=== PATIENT | male | born 1960 | race Caucasian/White ===

== ENCOUNTER 2023-02-20 12:55 | Emergency (ER) | payer OTHER, BC ==
[~2023-02-20] VITALS: Ht 182.9 cm; Wt 76.5 kg
[~2023-02-20 12:55] MED LIST: HYDROCHLOROTHIA25 MG PO; NORCO 5-325 TA1 EACH PO; OMEPRAZOLE20 MG PO
[2023-02-20 15:30] LABS: BASOPHILS 0.4 % (0-2); HEMATOCRIT 39.4 % (35.0-50.0); HEMOGLOBIN 13.7 g/dL (12.0-18.0); LYMPHOCYTES 17.1 % (24-44); MCH 32.5 (27-36); MCHC 34.7 g/dl (30-36); MCV 93.6 fl (81-99); NEUTROPHILS 71.5 % (39-80); RBC 4.21 M/ul (4.3-5.7); RDW 16.5 (10.5-15.0)
[2023-02-20 15:47] LABS: ALBUMIN 3.9 g/dL (3.4-5.0); ALBUMIN/GLOBULIN RATIO 1.22 (1.1-2.4); ANION GAP 21.9 (7-21); BILIRUBIN, TOTAL 2.6 ng/dL (0.2-1.0); POTASSIUM 3.9 mmol/L (3.5-5.1); PROTEIN, TOTAL 7.1 g/dL (6.4-8.2)
[2023-02-20 16:04] LABS: BUN/CREATININE RATIO 22.36 (6.0-28.6); CALCIUM 9.5 mg/dL (8.5-10.1); CREATININE, SERUM 0.76 mg/dL (0.70-1.30)
[2023-02-20 17:20] VITALS: BP 131/85
== END 2023-02-20 17:20 | disposition home or self-care (01) ==
LOC: ED 12:55
PROVIDERS: Emergency Medicine
DX: R53.1 Weakness (principal); I10 Essential (primary) hypertension
CPT/HCPCS: 36415; 80053; 83690; 85025; 85060; 99284

== ENCOUNTER 2023-03-05 14:54 | Inpatient (IN) | payer OTHER, BC ==
[~2023-03-05] VITALS: Ht 182.9 cm; Wt 64.2 kg
--- OUTSIDE RECORDS SUMMARY | 2023-03-05 15:02 | XMS ---
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 - 2 Visits in 30 Days CARE PROVIDERS There are no care providers on record at this time. Dustin has no Care Guidelines for this patient. Cinthya VISIT COUNT (12 MO.) 2 [facility] H. TOTAL 2 NOTE: Visits indicate total known visits. ED/[facility] VISIT TRACKING (12 MO.) 03/05/2023 14:[address] [facility] TYPE: Emergency COMPLAINT: - WEAKNESS 02/20/2023 12:[address] [facility] TYPE: Emergency COMPLAINT: - WEAKNESS, LETHARGIC DIAGNOSES: - Essential (primary) hypertension - Weakness INPATIENT VISIT TRACKING (12 MO.) No inpatient visits to display in this time frame [email or web address]
[2023-03-05 15:57] LABS: EOSINOPHILS 0.6 % (0-6); HEMATOCRIT 44.9 % (35.0-50.0); HEMOGLOBIN 15.2 g/dL (12.0-18.0); LYMPHOCYTES 7.2 % (24-44); MCH 33.1 (27-36); MCHC 33.9 g/dl (30-36); MCV 97.7 fl (81-99); MONOCYTES 8.6 % (0-12); NEUTROPHILS 83.6 % (39-80); PLATELET COUNT 290 K/uL (140-440); RBC 4.59 M/ul (4.3-5.7); RDW 19.1 (10.5-15.0)
[2023-03-05 16:11] LABS: ALBUMIN 4.3 g/dL (3.4-5.0); ALBUMIN/GLOBULIN RATIO 1.13 (1.1-2.4); ANION GAP 24.5 (7-21); BILIRUBIN, TOTAL 2.5 ng/dL (0.2-1.0); BUN/CREATININE RATIO 39.82 (6.0-28.6); CALCIUM 10.1 mg/dL (8.5-10.1); CREATININE, SERUM 2.26 mg/dL (0.70-1.30); MAGNESIUM 3.3 mg/dL (1.8-2.4); POTASSIUM 4.5 mmol/L (3.5-5.1); PROTEIN, TOTAL 8.1 g/dL (6.4-8.2)
[2023-03-05 17:01] LABS: INFLUENZA B NAA NEGATIVE (NEGATIVE); RESPIRATORY SYNCYTIAL VIR NAA NEGATIVE (NEGATIVE)
--- NOTE | 2023-03-05 18:35 | NUR ---
THIS RN DOWN TO ED TO TRANSFER PT TO MED/SURG. BEDSIDE REPORT RECEIVED FROM SHANNAN Shepard RN. PT TO MED/SURG ROOM VIA STRETCHER. QUICK ADMIT COMPLETE. VITALS AND BED WEIGHT COMPLETE. VASCULAR ACCESS COMPLETE. WALLET, KEYS AND POCKET KNIFE PLACED IN LOCK BOX. CLOTHES IN BELONGING BAG PLACED IN CLOSET. PT IN BED IN ROOM. PT REQUESTING WATER. WATER PROVIDED. CALL LIGHT PROVIDED. PT EDUCATED FREIGHT TRUCKER LIGHT USE. PT VERBALIZES UNDERSTANDING. PT DENIES ANY OTHER NEEDS AT THIS TIME. CALL LIGHT IN REACH.
[2023-03-05 18:48] VITALS: BP 147/94
--- NOTE | 2023-03-05 19:45 | NUR ---
REPORT RECEIVED FROM DAY SHIFT RN. PT SITTING UP IN BED WATCHING TV. AWAKE AND ALERT. NO SIGNS OF ACUTE DISTRESS. CALL LIGHT WITHIN REACH. NO NEEDS EXPRESSED AT THIS TIME. IV IN PLACE AND INTACT. WILL CONTINUE TO MONITOR.
[2023-03-05 20:25] VITALS: BP 136/95
--- NOTE | 2023-03-05 20:46 | NUR ---
SISTER HÉCTOR NOYOLA CALLED AND ASKED FOR PT UPDATE, PT GAVE VERBAL PERMISSION TO ALLOW STAFF TO TALK TO SISTER HÉCTOR VIA PHONE. UPDATE PROVIDED AND QUESTIONS ANSWERED, SISTER TRANSFERRED TO PT ROOM AND TALKING TO PT ON PHONE AT THIS TIME. HÉCTOR'S # [phone]. SISTER WISHES TO HAVE PRIMARY RN CALL BACK SISTER WHEN ABLE, PRIMARY RN MARY MADE AWARE.
--- NOTE | 2023-03-05 21:20 | NUR ---
ON PHONE WITH DR PEREZ, TELEPHONE ORDERS TO MAKE pt NPO AT MIDNIGHT FOR TENATIVE SCOPE TOMORROW. ALSO MADE AWARE THAT LR BOLUS IS INFUSING AND LAB WILL DRAW ORDERED BMP FOLLOWING COMPLETION OF BOLUS, OKAY'ED AND WILL BE LOOKING FOR LAB RESULTS. PRIMARY RN MARY NOW ON PHONE DEMETRIUS LAFLEUR REGARDING pt CARE.
[2023-03-05 22:54] LABS: BUN/CREATININE RATIO 44.1 (6.0-28.6); CALCIUM 9.3 mg/dL (8.5-10.1); CREATININE, SERUM 1.95 mg/dL (0.70-1.30)
--- NOTE | 2023-03-05 23:55 | NUR ---
PATIENT BLADDER SCANNED PER DR. THOMAS ORDERS. BLADDER SCAN SHOWS 367CC IN BLADDER. PT THEN VOIDED 150ML OF CHECO URINE INTO URINAL. DR THOMAS NOTIFIED OF PT VOID AMOUNT. 1000ML BOLUS ORDERED TO RUN OVER 2 HOURS. WILL CONTINUE TO MONITOR.
--- NOTE | 2023-03-06 01:30 | NUR ---
PT RESTING COMFORTABLY IN BED. BREATHING EVEN AND UNLABORED. NO SIGNS OF ACUTE DISTRESS. IV FLUIDS INFUSING. IV INTACT AND PATENT. NO NEEDS EXPRESSED AT THIS TIME. WILL CONTINUE TO MONITOR.
[2023-03-06 02:07] VITALS: BP 138/83
[2023-03-06 02:23] LABS: BILIRUBIN, URINE POSITIVE (negative); BLOOD/HGB, URINE NEGATIVE (Negative); KETONE, URINE TRACE (Negative); LEUK ESTERASE, URINE NEGATIVE (negative); NITRITE, URINE NEGATIVE (negative)
--- NOTE | 2023-03-06 03:55 | NUR ---
PT RESTING COMFORTABLY IN BED, BREATHING EVEN AND UNLABORED. IV FLUIDS INFUSING. NO SIGNS OF ACUTE DISTRESS. CALL LIGHT IN REACH. SAFETY PRECAUTIONS IN PLACE. WILL CONTINUE TO MONITOR.
--- NOTE | 2023-03-06 06:06 | NUR ---
BLOOD LABS DRAWN FROM IV, TOLERATED WELL. IV FLUSHED WELL, IV FLUIDS INFUSING PER ORDER.
[2023-03-06 06:13] LABS: BASOPHILS 0.3 % (0-2); EOSINOPHILS 0.4 % (0-6); HEMATOCRIT 35.6 % (35.0-50.0); HEMOGLOBIN 11.3 g/dL (12.0-18.0); LYMPHOCYTES 13.7 % (24-44); MCH 32.7 (27-36); MCHC 31.7 g/dl (30-36); MCV 103.5 fl (81-99); MONOCYTES 9.5 % (0-12); NEUTROPHILS 76.1 % (39-80); PLATELET COUNT 178 K/uL (140-440); RBC 3.45 M/ul (4.3-5.7); RDW 22.2 (10.5-15.0)
[2023-03-06 06:16] VITALS: BP 135/78
--- NOTE | 2023-03-06 07:20 | NUR ---
bedside report from enrrique rn, pt resp rate reg, eyes closed with call light in reach. lr on strait tubing provided to bedside by this rn in anticipation of egd with dr rueda today. pt npo, iv fusing. lab called and needs a yellow top blood draw as an add on from dr. rueda - for a send out lab - this rn discussed with wheel shop supervisor and dr. dubose and agree as pt is hard stick to wait until his scope today and draw blood when in procedure for his comfort. this rn will notify staff to draw yellow top during the procedure.
--- NOTE | 2023-03-06 07:43 | NUR ---
dayshiphong cabrera aware of new order for yellow top lab-send out.
--- NOTE | 2023-03-06 08:00 | NUR ---
pt brother cheyanne here to check in and let us know he lives in [place] and brother pt mitch is single, no kids, so cheyanne is his oldest, closest brother and is willing to help out with care and transport etc. phone [phone]. rn notified roque alexander mnt.
[2023-03-06 08:40] LABS: ALBUMIN 2.9 g/dL (3.4-5.0); ALBUMIN/GLOBULIN RATIO 1.04 (1.1-2.4); ANION GAP 14.7 (7-21); BILIRUBIN, TOTAL 1.8 ng/dL (0.2-1.0); BUN/CREATININE RATIO 44.76 (6.0-28.6); CALCIUM 8.9 mg/dL (8.5-10.1); CREATININE, SERUM 1.72 mg/dL (0.70-1.30); MAGNESIUM 2.8 mg/dL (1.8-2.4); PHOSPHORUS, INORGANIC 3.8 mg/dL (2.5-4.9); POTASSIUM 3.7 mmol/L (3.5-5.1); PROTEIN, TOTAL 5.7 g/dL (6.4-8.2)
--- NOTE | 2023-03-06 08:58 | NUR ---
ENTERED THE PATIENT'S ROOM TO DO A HOUSING CASE MANAGERTAPPER OPERATOR AND PATIENT IS SLEEPING. THE PLAN IS THE PATIENT WILL GO TO THE OR TODAY FOR AN GASTROESOPHEAL BIOPSY FOR POSSIBLE CANCER. WILL CHECK BACK LATER TO SEE IF PATIENT IS AWAKE AND ABLE TO DISCUSS THE DISCHARGE PLAN.
--- NOTE | 2023-03-06 10:03 | NUR ---
PATIENT IS AWAKE AND DISCUSSED THE DC PLAN WITH TRAINING INSTRUCTOR. PATIENT LIVES ALONE IN AN APARTMENT. PATIENT HAS A BROTHER JUAN PABLO AT [phone] WHO IS WILLING TO HELP NEEDED. 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 PATIENT DOES NOT USE DME.PATIENT CAME INTO HOSPITAL BECAUSE OF DIFFICULTY SWALLOWING. PATIENT PLANS TO GO HOME TO HIS APRTMENT WHEN MEDICALLY STABLE POST-OP BIOPSY.
[2023-03-06 10:08] VITALS: BP 110/52
--- NOTE | 2023-03-06 11:07 | NUR ---
RAFAELA Juan ASKED FOR SPIRITUAL CARE CONSULT. ATTEMPTED TO VISIT. PT WAS SLEEPING. DID NOT DISTURB. PRAYED SILENTLY FOR COMFORT AND RELIEF FROM DISTRESS.
--- NOTE | 2023-03-06 11:13 | NUR ---
in room with dr rueda and pt to discuss plan of care, pt na+ low and being corrected at this time with d5 @ 125 - discuss plan for scope to be tomorrow.
--- NOTE | 2023-03-06 13:30 | NUR ---
lengthy discussion with brother minoo and then introduced to Opal davila and dr dubose. in room now with dr and pt and brother. pt tollerating clear liquid diet. brother going in to talk to pt about options of care and staying with family.
--- NOTE | 2023-03-06 13:55 | NUR ---
PATIENT'S BIOPSY HAS BEEN CHANGED AND WILL BE TOMORROW SINCE PATIENT'S NA IS ELEVATED TO 150. BROTHER JUAN PABLO IS HERE AND WANTED TO DISCUSS THE FUTURE PLAN SINCE THE PATIENT HAS METS VIA CT. JUAN PABLO IS WILLING TO TAKE THE PATIENT HOME TO [facility] IF THE PATIENT AGREES. PATIENT ALSO HAS A SISTER IN [place] THAT MAY HELP IF NEEDED. THE FAMILY WILL TALK TO THE PATIENT TO COME UP WITH THE BEST PLAN FOR THE PATIENT. JUAN PABLO ENCOUARED TO CALL CASE MANGEMENT FOR ALL ISSUE AND CONCERNS.
[2023-03-06 14:43] VITALS: BP 123/83
--- NOTE | 2023-03-06 15:05 | NUR ---
UR NOTE MCG DEHYDRATION (ISC) INPATIENT 03/05/23 MET CLINICAL INDICATIONS FOR INPATIENT CARE 03/06/23 VARIANCE GL DAY 2
[2023-03-06 16:05] LABS: ANION GAP 17.8 (7-21); BUN/CREATININE RATIO 42.33 (6.0-28.6); CALCIUM 8.9 mg/dL (8.5-10.1); CREATININE, SERUM 1.63 mg/dL (0.70-1.30); POTASSIUM 3.8 mmol/L (3.5-5.1)
--- NOTE | 2023-03-06 17:29 | NUR ---
MED REC COMPLETE
--- NOTE | 2023-03-06 17:32 | NUR ---
call to dr dubose to notify that pt is not able to swallow fluids well and keep down, pt is spitting up saliva and juice after he drinks it. said fluids for comfort and continue the d5w. pt denies pain. call light in reach.
--- NOTE | 2023-03-06 18:52 | NUR ---
iv bag refreshed see emar, pt resting on left side watching tv, denies need, call light in reach. sign on door and order in for npo at wa for scope in am. strait tubing to bed.
[2023-03-06 20:33] LABS: ANION GAP 12.4 (7-21); BUN/CREATININE RATIO 37.8 (6.0-28.6); CALCIUM 8.7 mg/dL (8.5-10.1); CREATININE, SERUM 1.64 mg/dL (0.70-1.30); POTASSIUM 3.4 mmol/L (3.5-5.1)
[2023-03-06 20:55] VITALS: BP 143/74
--- NOTE | 2023-03-06 22:28 | EKG ---
[facility] [address] [place] [address] Signed Normal sinus rhythm Left anterior fascicular block Anterior infarct (cited on or before 19-DEC-2015) Abnormal ECG When compared with ECG of 19-DEC-2015 13:22, Left anterior fascicular block is now present T wave inversion no longer evident in Inferior leads Confirmed by Tyler Perez MD () on 03/06/2023 10:28:24 PM Electronically Signed By: TYLER PEREZ MD 03/06/232227 PATIENT NAME: LISBETH EL Electrocardiogram DATE OF : 62 PHYSICIAN: TYLER PEREZ MD REPORT #: [id number] REPORT IS CONFIDENTIAL AND NOT TO BE RELEASED WITHOUT AUTHORIZATION
--- NOTE | 2023-03-06 22:36 | NUR ---
PT RESTING COMFORTABLY IN BED WITH EYES CLOSED. BREATHING EVEN AND UNLABORED. IV FLUIDS INFUSING. IV PATENT AND INTACT. CALL LIGHT WITHIN REACH. SAFETY PRECAUTIONS IN PLACE. WILL CONTINUE TO MONITOR.
--- NOTE | 2023-03-07 00:13 | NUR ---
PT RESTING COMFORTABLY IN BED WITH EYES CLOSED. BREATHING EVEN AND UNLABORED. IV FLUIDS INFUSING. IV INTACT AND PATENT. NO NEEDS EXPRESSED AT THIS TIME. CALL LIGHT WITHIN REACH. SAFETY PRECAUTIONS IN PLACE.
[2023-03-07 01:03] LABS: BUN/CREATININE RATIO 43.51 (6.0-28.6); CALCIUM 7.3 mg/dL (8.5-10.1); CARBON DIOXIDE 20 mmol/L (21-32); CREATININE, SERUM 1.08 mg/dL (0.70-1.30); GLOMERULAR FILTRATION RATE,EST 78 mL/min (>60); UREA NITROGEN 47 mg/dL (7-18)
--- NOTE | 2023-03-07 01:30 | NUR ---
ATTEMPTED USIV PLACEMENT X2 WITHOUT SUCCESS. ATTEMPTED LAB DRAW X2 WITHOUT SUCCESS. PRIMARY RN NOTIFIED.
--- NOTE | 2023-03-07 04:00 | NUR ---
PT RESTING COMFORTABLY IN BED WITH EYES CLOSED. BREATHING EVEN AND UNLABORED. IV FLUIDS INFUSING. IV PATENT AND WITH NO SIGNS OF INFILTRATION. CALL LIGHT IN REACH. SAFETY PRECAUTIONS IN PLACE.
[2023-03-07 05:46] LABS: BASOPHILS 0.2 % (0-2); EOSINOPHILS 1.3 % (0-6); HEMATOCRIT 32.1 % (35.0-50.0); HEMOGLOBIN 10.9 g/dL (12.0-18.0); LYMPHOCYTES 17.2 % (24-44); MCH 33.8 (27-36); MCHC 33.8 g/dl (30-36); MCV 99.7 fl (81-99); MONOCYTES 10.4 % (0-12); NEUTROPHILS 70.9 % (39-80); PLATELET COUNT 143 K/uL (140-440); RBC 3.22 M/ul (4.3-5.7); RDW 19.8 (10.5-15.0)
[2023-03-07 05:47] VITALS: BP 138/81
[2023-03-07 06:00] LABS: ALBUMIN 3.1 g/dL (3.4-5.0); ALBUMIN/GLOBULIN RATIO 1.11 (1.1-2.4); ANION GAP 11.9 (7-21); BILIRUBIN, TOTAL 1.8 ng/dL (0.2-1.0); BUN/CREATININE RATIO 32.37 (6.0-28.6); CALCIUM 8.5 mg/dL (8.5-10.1); CREATININE, SERUM 1.39 mg/dL (0.70-1.30); MAGNESIUM 2.4 mg/dL (1.8-2.4); PHOSPHORUS, INORGANIC 2.7 mg/dL (2.5-4.9); POTASSIUM 3.9 mmol/L (3.5-5.1); PROTEIN, TOTAL 5.9 g/dL (6.4-8.2)
--- NOTE | 2023-03-07 06:21 | NUR ---
PT REQUESTED TO GO TO BATHROOM. PT WALKED TO RESTROOM STEADY WITH STANDBY ASSIST. PT BACK IN BED. IV FLUIDS INFUSING. IV PATENT AND FLUSHING. NO NEEDS EXPRESSED AT THIS TIME. CALL LIGHT WITHIN REACH. SAFETY PRECAUTIONS IN PLACE.
--- NOTE | 2023-03-07 07:05 | NUR ---
REPORT RECEIVED FROM DIE ATTACHING MACHINE TENDER RN. PATIENT RESTING WITH EYES CLOSED. RESPIRATIONS ARE EVEN AND UNLABORED. CALL LIGHT AND PERSONAL BELONGINGS ARE WITHIN REACH.
--- NOTE | 2023-03-07 09:30 | NUR ---
PATIENT FULL ASSESSMENT COMPLETE. ASSESSMENT UNREMARKABLE AND DOCUMENTED IN THE CHART. PATIENT SITTING IN THE RECLINER WITH THEIR BROTHER AT BEDSIDE. IV SITE IS CLEAN, DRY, AND INTACT. SOME PAIN UPON FLUSHING THE 10 ML NORMAL SALINE. WITH PROTONIX AND THE SECOND 10 ML NORMAL SALINE, PATIENT TOLERATED WELL WITH NO COMPLAINTS OF PAIN. LUNG SOUNDS CLEAR. CARDIAC WITH NORMAL S1 AND S2 AND CAPILLARY REFILL LESS THAN 3 SECONDS IN THE UPPER AND LOWER EXTREMITIES. RADIAL AND PEDAL PULSES STRONG. IV 5% DEXTROSE NEW BAG HUNG AND RUNNING AT 125 ML/HR. PATIENT STATED NO PAIN AND NO FURTHER NEEDS AT THIS TIME. CALL LIGHT AND PERSONAL BELONGINGS ARE WITHIN REACH.
[2023-03-07 09:37] VITALS: BP 131/72
--- NOTE | 2023-03-07 09:39 | NUR ---
PATIENT STATED HE DID NOT HAVE TO USE THE BATHROOM YET. PT HAS NOT VOIDED YET ON THIS BUSHING PRESS OPERATOR'S SHIFT. PT IN CHAIR CALL LIGHT WITHIN REACH.
--- NOTE | 2023-03-07 10:41 | NUR ---
PT PROVIDED WITH CLEAR ENSURE AND WATER. ENCOURAGED TO TAKE SMALL SIPS AND TO ALLOW TIME BETWEEN SIPS. DR. CHAMBERLAIN IN ROOM, DISCUSSED DELAYING EGD UNTIL TOMORROW DUE TO NA 150, DISCUSSED HALFWAY PLAN OF CARE DISCHARGE VS [facility].
--- NOTE | 2023-03-07 13:23 | NUR ---
PATIENT SITTING UPRIGHT IN THE RECLINER. PATIENT LUNG ASSESSMENT WITH CLEAR LUNG SOUNDS IN ALL LUNG JAMA. PATIENT ON ROOM AIR. PATIENT STATING NO PAIN. IV SITE IN RIGHT HAND AND LEFT UPPER ARM ARE CLEAN, DRY, AND INTACT. PATIENT ASKED FOR TV TURNED ON. PATIENT STATED NO FURTHER NEEDS AT THIS TIME. CALL LIGHT AND PERSONAL BELONGINGS ARE WITHIN REACH.
[2023-03-07 13:50] VITALS: BP 118/75
[2023-03-07 17:24] VITALS: BP 141/87
--- NOTE | 2023-03-07 17:28 | NUR ---
PATIENT REFUSED CLEAR LIQUIDS X3. CALL LIGHT WITHIN REACH.
--- NOTE | 2023-03-07 18:56 | NUR ---
PT DENIES NEEDS AT THIS TIME, RESTING IN BED WATCHING TV.
--- NOTE | 2023-03-07 19:54 | NUR ---
REPORT RECIEVED FROM DAY SHIFT RN. PATIENT RESTING IN BED. REPIRATIONS EVEN AND UNLABORED. CALL LIGHT IN REACH. WHITE BOARD UPDATED.
[2023-03-07 20:19] VITALS: BP 124/76
[2023-03-07 20:25] LABS: ANION GAP 11.4 (7-21); BUN/CREATININE RATIO 23.52 (6.0-28.6); CALCIUM 8.1 mg/dL (8.5-10.1); CREATININE, SERUM 1.19 mg/dL (0.70-1.30); POTASSIUM 3.4 mmol/L (3.5-5.1)
--- NOTE | 2023-03-07 20:30 | NUR ---
PATIENT RESTING IN BED. AWAKENS EASILY. BLOOD DRAWN OUT OF LEFT UPPER ARM IV AND SENT TO LAB. VS OBTAINED AND DOCUMENTED. ASSESSMENT COMPLETE. PATIENT HAS STRONG PULSES BILATERALLY. PATIENT DENIES ANY PAIN OR NAUSEA. PATIENT HAS NO FURHTER NEEDS. CALL LIGHT IN REACH. FLUIDS INFUSING PER ORDER.
--- NOTE | 2023-03-07 22:18 | NUR ---
ROUNDING ON PATIENT. PATIENT RESTING ON BACK IN BED. RESPIRATIONS EVEN AND UNLABORED. CALL LIGHT IN REACH.
[2023-03-08] VITALS (7 sets, daily range): BP systolic 98–129; BP diastolic 63–73
--- NOTE | 2023-03-08 | NUR ---
NEW ORDERS RECIEVED. MEDICATIONS ADMINISTERED, SEE MAR. PATIENT EDUCATED ON NEW MEDICATION. PATIENT VERBALIZES UNDERSTANGING. CALL LIGHT IN REACH.
--- NOTE | 2023-03-08 01:57 | NUR ---
PATIENT RESTING IN BED ON LEFT SIDE. RESPIRATIONS EVEN AND UNLABORED. MEDICATIONS INFUSING PER ORDER. CALL LIGHT IN REACH.
--- NOTE | 2023-03-08 03:03 | NUR ---
PATIENT RESTING IN BED ON BACK WITH EYES CLOSED. RESPIRATIONS EVEN AND UNLABORED. MEDICATION INFUSING PER ORDER. CALL LIGHT IN REACH.
--- NOTE | 2023-03-08 04:21 | NUR ---
PATIENT IS RESTING IN BED WITH EYES CLOSED, RR 15. CALL LIGHT IN REACH. IV INFUSING PER ORDER.
[2023-03-08 05:36] LABS: BASOPHILS 0.2 % (0-2); EOSINOPHILS 1.8 % (0-6); HEMATOCRIT 28.8 % (35.0-50.0); HEMOGLOBIN 9.8 g/dL (12.0-18.0); LYMPHOCYTES 11.3 % (24-44); MCH 33.8 (27-36); MCHC 34.1 g/dl (30-36); MCV 99.1 fl (81-99); MONOCYTES 10.9 % (0-12); NEUTROPHILS 75.8 % (39-80); PLATELET COUNT 125 K/uL (140-440); RBC 2.91 M/ul (4.3-5.7); RDW 18.8 (10.5-15.0)
--- NOTE | 2023-03-08 05:39 | NUR ---
MORNING LABS DRAWN BY THIS RN. PATIENT UP TO BATHROOM TO VOID WITH 1 PERSON SBA. VS AND I&Os OBTAINED AND DOCUMENTED. ASSESSMENT COMPLETE. LUNG SOUNDS CLEAR BILAT. PATIENT STATES NO FURTHER NEEDS. CALL LIGHT IN REACH. PATIENT REPORTS NO PAIN AT THIS TIME. IV INFUSING PER ORDER.
[2023-03-08 05:57] LABS: ALBUMIN 2.8 g/dL (3.4-5.0); ALBUMIN/GLOBULIN RATIO 1.12 (1.1-2.4); ANION GAP 12.1 (7-21); BILIRUBIN, TOTAL 2.4 ng/dL (0.2-1.0); BUN/CREATININE RATIO 22.52 (6.0-28.6); CALCIUM 8.2 mg/dL (8.5-10.1); CREATININE, SERUM 1.11 mg/dL (0.70-1.30); MAGNESIUM 2.1 mg/dL (1.8-2.4); PHOSPHORUS, INORGANIC 2.6 mg/dL (2.5-4.9); POTASSIUM 4.1 mmol/L (3.5-5.1); PROTEIN, TOTAL 5.3 g/dL (6.4-8.2)
--- NOTE | 2023-03-08 07:00 | NUR ---
REPORT RECEIVED FROM GREASE PRESS HELPER RN ISMAEL. PATIENT LYING ON THE LEFT SIDE. RESPIRATIONS EVEN AND UNLABORED AND RESTING WITH EYES CLOSED. CALL LIGHT AND PERSONAL BELONGINGS ARE WITHIN REACH.
--- NOTE | 2023-03-08 09:35 | NUR ---
PATIENT MET WITH FIRST HELPER AND CONSENT SIGNED BY THE PATIENT. PATIENT PROTONIX ADMINISTERED PER THE EMAR. 10 ML NORMAL SALINE FLUSHES DONE BEFORE AND AFTER IN THE LEFT UPPER ARM. PATIENT AMBULATED TO THE BATHROOM WITH STAND BY ASSIST TO VOID. PATIENT FULL ASSESSMENT UNREMARKABLE. PATIENT AFFECT FLAT. SISTER STATED YESTERDAY THIS WAS HIS BASELINE. PATIENT PRE PROCEDURE CHECKLIST COMPLETE. OR NURSES TOOK DOWN TO OR. PATIENT BROTHER, SISTER IN LAW, AND NIECE ARE AT THE BEDSIDE. PATIENT STATED NO FURTHER NEEDS AT THIS TIME. CALL LIGHT AND PERSONAL BELONGINGS ARE WITHIN REACH.
--- NOTE | 2023-03-08 10:11 | NUR ---
03/08/23 1011 Chantelle Alvarez 1006: PT ARRIVES TO PACU ASLEEP. HE REQUIRES SUCTION UPON ARRIVAL. HE IS INSTRUCTED TO COUGH AND DEEP BREATH, HE IS ABLE TO FOLLOW COMMANDS APPROPRIATELY.
--- NOTE | 2023-03-08 10:40 | NUR ---
PATIERNT RETURNED BACK TO THE ROOM. VITAL SIGNS TAKEN AND ARE ALL WITHIN NORMAL. PATIENT FAMILY AT THE BEDSIDE. PATIENT STATED NO FURTHER NEEDS AT THIS TIME. CALL LIGHT AND PERSONAL BELONGINGS ARE WITHIN REACH.
--- NOTE | 2023-03-08 15:25 | NUR ---
PATIENT LAYING IN THE BED WITH FAMILY MEMBER AT BEDSIDE. NEW BAG OF D5LR STARTED. PATIENT AND FAMILY STATED NO FURTHER NEEDS AT THIS TIME. CALL LIGHT AND PERSONAL BELONGINGS ARE WITHIN REACH.
--- NOTE | 2023-03-08 16:10 | NUR ---
PATIENT GOT UP TO THE BATHROOM AND BRUSHED HIS TEETH. PATIENT IV PUMP PLUGGED BACK IN. PATIENT FAMILY IS AT THE BEDSIDE. PATIENT STATED NO FURTHER NEEDS AT THIS TIME.
--- NOTE | 2023-03-08 18:25 | NUR ---
PATIENT ASKED ABOUT HAVING MORE ZOFRAN BEFORE GOING TO BED. PATIENT EDUCATED HOW HE CAN HAVE ZOFRAN EVERY SIX HOURS NEEDED. PATIENT ALSO EDUCATED THAT HE CAN HAVE COMPAZINE FOR NAUSEA IF NEEDED BEFORE 2200. PATIENT EXPRESSED UNDERSTANDING. TWO OF THE PATIENTS SIBLINGS ARE AT THE BEDSIDE. PATIENT AND FAMILY STATED NO FURTHER NEEDS AT THIS TIME. CALL LIGHT AND PERSONAL BELONGINGS ARE WITHIN REACH.
--- NOTE | 2023-03-08 19:31 | NUR ---
REPORT RECIEVED FROM DAY SHIFT RN. PATIENT RESTING IN BED WATCHING TV. WHITE BOARD UPDATED. NO FURTHER NEEDS. CALL LIGHT IN REACH.
--- NOTE | 2023-03-08 19:55 | NUR ---
CALL LIGHT ANSWERED. SBA. PATIENT UP TO THE BATHROOM VOIDED 350ML DARK URINE. PATIENT IS BACK IN BED. NO OTHER NEEDS AT THIS TIME. CPOX BACK ON. CALL LIGHT AND SIDE TABLE WITHIN REACH.
--- NOTE | 2023-03-08 20:39 | NUR ---
PATIENT IN BED WATCHING TV. VS AND I&Os OBTAINED AND DOCUMENTED. PATIENT STATES HAVING NAUSEA. PATIENT STATES NO PAIN. PRN NAUSEA MEDICATION GIVEN, SEE MAR. IVs FLUSHED AND FLUIDS INFUSING PER ORDER. ASSESSMENT COMPELTE. LUNG SOUNDS WNL BILAT. STRONG PEDAL PULSES. TRASH EMPTIED AND ROOM CLEAN. PATIENT REPORTS NO FURTHER NEEDS. CALL LIGHT IN REACH.
--- NOTE | 2023-03-08 22:26 | NUR ---
PATIENT RESTING IN BED WITH EYES CLOSED. RESPIRATIONS EVEN AND UNLABORED. CALL LIGHT IN REACH. IV FLUIDS INFUSING PER ORDER.
--- NOTE | 2023-03-08 23:50 | NUR ---
PATIENT RESTING IN BED ON LEFT SIDE. RESPIRATIONS EVEN AND UNLABORED. CALL LIGHT IN REACH.
--- NOTE | 2023-03-09 02:36 | NUR ---
PATIENT IN BED RESTING ON BACK WITH EYES CLOSED. NEW BAG IV FLUID INFUSING, SEE MAR. RESPIRATIONS EVEN AND UNLABORED. 02 SAT 94% ON RA. CALL LIGHT IN REACH.
--- NOTE | 2023-03-09 03:34 | NUR ---
CALL LIGHT ANSWERED. PATIENT UP TO BATHROOM TO VOID WITH MINIMAL SBA. URINE VERY DARK IN COLOR. FOCUSED ASSESSMENT COMPLETE. PATIENT DENIED ANY N/V OR PAIN. LUNGS SOUNDS WNL BILAT. THIS RN ADJUSTED THE LENGTH OF PATIENTS BED FOR COMFORT. PATIENT HAS NO FURTHER NEEDS AT THIS TIME. CALL LIGHT IN REACH.
--- NOTE | 2023-03-09 03:38 | NUR ---
PATIENT RESTING IN BED ON BACK WITH EYES CLOSED. RESPIRATIONS EVEN AND UNLABORED. CALL LIGHT IN REACH.
--- NOTE | 2023-03-09 05:28 | NUR ---
PATIENT RESTING IN BED. VS AND I&Os OBTAINED AND RECORDED. ROOM CLEAN AND WHITE BOARD UPDATED. ICE CHIPS PROVIDED. PATIENT HAS NO FURTHER NEEDS. CALL LIGHT IN REACH.
[2023-03-09 06:40] VITALS: BP 100/52
--- NOTE | 2023-03-09 07:13 | OR ---
[facility] [address], [place] [address] Signed DATE OF OPERATION: 03/08/2023 SURGEON: Mark Chamberlain MD PREOPERATIVE DIAGNOSIS: Gastric/GE junction tumor. 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 PROCEDURE: EGD with CLOtest and biopsies of the pyloric bulb antrum, distal side of tumor and proximal side of tumor, distal esophagus and mid esophagus. ESTIMATED BLOOD LOSS: 10 mL. FINDINGS: Lisbeth indeed has a very friable tumor involving the entire lower esophageal sphincter area. 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 He said he is connected with the [employer], but is not exactly able to tell me why. He does have his primary care provider here in [place], [place]. His family tells me he has been a loner all his whole life. He has never been and he has no children. He currently works at the local [employer]. He has one brother who lives over in [place], [place] about 1 hour and 20 minutes away. He has a sister in [place], [place] and one sister in [place], [place]. At least six months ago, he started to mention symptoms to his primary care provider. He told the primary care provider he was intentionally losing weight. He was complaining of acid reflux. Prilosec was not helping and he went back to his Pepcid. He then increased the Pepcid to b.i.d. Over six months he has gone from about 230 pounds down to about 140 pounds. Some blood work came back with elevated liver function test. An ultrasound showed multiple lesions in the liver. The radiologist recommended MRI. The MRI was done about three weeks later. It shows a 5.8 x 4.5 cm in the fundus and GE junction of the stomach. Of course, there were multiple lesions throughout the liver and multiple pathologically enlarged lymph nodes in the upper abdomen. I have been asked to see him expeditiously in my office two days later. In the office, he was profoundly weak and dehydrated. My certified medical coder Electronically Signed By: MARK CHAMBERLAIN MD 03/09/23 0713 PATIENT NAME: LISBETH EL OPERATIVE REPORT DATE OF : 62 REPORT #: [id number] PHYSICIAN: MARK CHAMBERLAIN MD PCP: HUSSEIN ESTEVES MD REPORT IS CONFIDENTIAL AND NOT TO BE RELEASED WITHOUT AUTHORIZATION [address] [address] Signed I had to help him from the exam chair over to the wheelchair. We had taken him down to our local emergency room there connected to our medical office building. I spoke with the ER doctor and our hospitalist. He had received IV fluids and some blood work and admitted to the hospitalist service. Of course, he was in significant renal failure. He was also hypernatremic. He initially received saline. As his urine output picked up, they switched over to D5W. Finally today his sodium is down into the normal range. Of course, he is pancytopenic at this point. His albumin dropped to 2.8. His pre-albumin still pending. The CEA level is also still pending. We did not perform any additional radiographic studies at this time. He is able to swallow and control his saliva. But if we asked him to drink clear liquids to any significant degree, he generally coughs quite a bit of that back up. I think solid food is out of the question. I have now met with Lisbeth several days in a row along with his brother, José Miguel and his [id number]. I think they all understand the gravity of the situation at this time. Of course, I have been asked as a local general surgeon to help with upper endoscopy and biopsies of the tumor. I had reviewed with Lisbeth and his family the nature of an upper endoscopy. Lisbeth told me he had a colonoscopy over 10 years ago back at our old hospital. Consequently, he is somewhat familiar with this process. He knows there is risk including, but not limited to gas bloating, crampy abdominal pain, bleeding, perforation requiring surgery, and missed diagnosis. Also because of his current situation along with his weakness, we did have an anesthesia provider help with monitored anesthesia care and increased airway control. That actually proved to be a feliz decision. Lisbeth had expressed understanding and wished to proceed. DESCRIPTION OF PROCEDURE: Lisbeth was taken down to our endoscopy suite and placed in the supine semi-recumbent position. He was given monitored anesthesia care with propofol infusion per our nurse ict help desk officer. A bite block was utilized for the case. The adult gastroscope had been introduced and advanced very slowly down the esophagus under direct visualization. We could easily see the tumor ahead of us at the GE junction at 35 cm. We spent just a minute or two and very carefully and gently worked our way through the tumor with very little resistance as we went through and into the stomach itself. We passed the scope then without resistance down into the duodenum. The duodenum and pyloric channel were unremarkable. We brought the camera back into the stomach and the antrum, incisura, body and fundus of the stomach were unremarkable. We could easily see the tumor up at the cardia, occupying more than one-half circumference of the GE junction. Of course, there is a little bit of blood because of the friability of the tumor. We went ahead and took a biopsy of the pyloric bulb and the antrum for pathologic review. We took an additional biopsy of the antrum for CLOtest. We retroflexed the scope and brought the camera up near the distal side of the tumor and took a single biopsy where it joins what appears to be more normal-looking gastric tissue. We withdrew the scope carefully up through the tumor and again it is just large enough to get the adult gastroscope through. We took pictures on our way back to the tumor. Once we got on top of the Electronically Signed By: MARK CHAMBERLAIN MD 03/09/23 0713 PATIENT NAME: LISBETH EL OPERATIVE REPORT DATE OF : 62 REPORT #: [id number] PHYSICIAN: MARK CHAMBERLAIN MD PCP: HUSSEIN ESTEVES MD REPORT IS CONFIDENTIAL AND NOT TO BE RELEASED WITHOUT AUTHORIZATION [facility] [address] [place] [id number] Signed tumor, we went ahead and took a single biopsy where it joins the distal esophagus. I could not visibly see any tumor in the distal, middle or upper esophagus. We went ahead and took a biopsy of the distal esophagus and one in the middle esophagus for pathologic review. After this, the gas was suctioned out and the gastroscope removed. Lisbeth tolerated the procedure quite well. RECOMMENDATIONS: Lisbeth will be returning to his room on the medical service. Tomorrow will be Thursday. He has been talking about [facility] and his two sisters with that being a possible option for him particularly if he needs ongoing inpatient care. We will review that in more detail tomorrow with the help of our discharge planners in our hospitalist service. Mark Chamberlain MD ALB/MODL /[id number] cc: Hussein Esteves MD [facility] Mark Chamberlain MD Copies: HUSSEIN ESTEVES MD, ANDREW L MD ~ Electronically Signed By: MARK CHAMBERLAIN MD 03/09/2313 PATIENT NAME: LISBETH EL OPERATIVE REPORT DATE OF : 62 REPORT #: [id number] PHYSICIAN: MARK CHAMBERLAIN MD PCP: HUSSEIN ESTEVES MD REPORT IS CONFIDENTIAL AND NOT TO BE RELEASED WITHOUT AUTHORIZATION
--- NOTE | 2023-03-09 07:15 | NUR ---
Pt report received from RAFAELA Nash and RAFAELA Soto. Pt is asleep on his left side, breathing regular, even, and non-labored. Call light in reach.
[2023-03-09 09:36] LABS: PREALBUMIN 14.3 mg/dL (20.0-40.0)
[2023-03-09 09:42] LABS: CARCINOEMBRYONIC ANTIGEN 27.5 ng/mL (<=3.8)
--- NOTE | 2023-03-09 09:43 | NUR ---
LEARNING AND DEVELOPMENT MANAGER IN WITH PT AND PT'S FAMILY DISCUSSING WHAT THE CARE TEAM DISCUSSED IN THEIR MEETING THIS MORNING. PT DENIES ANY NEEDS AT THIS TIME. CALL LIGHT IN REACH.
[2023-03-09 10:01] VITALS: BP 109/67
--- NOTE | 2023-03-09 10:21 | NUR ---
LEFT MESSAGE [facility] TO [facility]UTE [facility]ACILITY
--- NOTE | 2023-03-09 11:24 | NUR ---
RECVD CALL BACK FROM [facility]. CASE DISCUSSED. HISTOLOGY SUPERVISOR WILL REACH OUT TO CO FACILITIES IN [facility] AND [place] TO CHECK FOR BED AVAILABILITY. IN TO ROOM, DR. CHAMBERLAIN AT THE BEDSIDE. PATIENT AND SISTER HÉCTOR UPDATED. DR. BONILLA NOTIFIED OF PLAN.
[2023-03-09 13:29] VITALS: BP 114/66
--- NOTE | 2023-03-09 14:45 | NUR ---
FINANCIAL AND MEDICAL POA SIGNED BY PATIENT AND BROTHER LUCÍA EL. WITNESSED BY MYSELF AND BRANDIE RUSSO. COPIES PROVIDED TO PATIENT, FAMILY AND FOR MEDICAL RECORDS.
--- NOTE | 2023-03-09 15:19 | NUR ---
IN WITH ROCK CUTTERMGR ROSA MARIA VALLE TO WITNESS PT SIGNATURE ON HIS POA FORMS WITH HIS BROTHER. PT UP TO VOID 300ML CLEAR, DARK COLORED URINE. PT BACK TO BED IN A POSITION OF COMFORT. IV FLUIDS BEING ADMINISTERED. CALL LIGHT IN REACH.
--- NOTE | 2023-03-09 15:58 | NUR ---
RECVD MESSAGE FROM VERONIKA AT [place], [facility] DISCHARGES TOMORROW. WILL SPEAK WITH VERONIKA TOMORROW TO CONTINUE TRANSFER PLANNING.
--- NOTE | 2023-03-09 16:00 | NUR ---
BRIANA MONTGOMERY RESPONDED TO PT'S CALL LIGHT. PT'S BROTHER BELIEVED THE PT'S IV WAS DISCONNECTED FROM THE IV FLUIDS THAT WERE RUNNING BUT DID NOT REALIZE THE PT HAD TWO IV SITES. HE WAS REASSURED THAT THE FLUIDS WERE BEING ADMINISTERED. AT THIS TIME, THE PT REQUESTED SOMETHING FOR NAUSEA. IV IN RH FLUSHED WITH 5ML NS AND PT EXPERIENCED BURNING, NO RETURN. THIS IV WILL BE D/C'D PT HAS AN U/S GUIDED IV IN HIS LEFT UPPER ARM THAT HAS CONTINUOUS FLUIDS RUNNING. IV FLUIDS PLACED ON STANDBY, KIMBERLY IV FLUSHED WITH 5ML NS, ZOFRAN ADMINISTERED, IV FLUSHED, AND IV FLUIDS RESTARTED. PT HAS NO C/O PAIN, TENDERNESS, NO SWELLING, LEAKING, OR REDNESS NOTED AT THIS IV SITE. FAMILY AT BEDSIDE. PT DENIES FURTHER NEEDS AT THIS TIME. CALL LIGHT IN REACH.
[2023-03-09 17:32] VITALS: BP 106/59
--- NOTE | 2023-03-09 17:52 | NUR ---
PT HAS BEEN NAPPING OFF AND ON THROUGHOUT THIS SHIFT IN BETWEEN VISITS FROM FAMILY. PT HAS A FLAT AFFECT BUT DOES RESPOND AND REPLY APPROPRIATELY IN CONVERSATION AND WHEN BEING ASKED QUESTIONS BY STAFF. PT HAS BEEN UP TO TOILET TO VOID, NO BM, WEARS BRIEFS WELL. HE HAS NOT FELT LIKE EATING ANYTHING THIS SHIFT AND JUST BEFORE DINNER HE STATED, WHEN ASKED, THAT HE FEELS HIS STOMACH GROWLING, BUT HE'S TOO NERVOUS TO TRY TO SWALLOW ANYTHING FOR FEAR THAT HE WILL CHOKE AND GAG AGAIN. PT HAS COMPLAINED OF NAUSEA X2 THIS SHIFT AND WAS MEDICATED WITH 4MG ZOFRAN PER EMAR. PT'S BROTHER ACQUIRED POA FORMS AND THIS RN AND RN ROSA MARIA VALLE WITNESSED PT'S SIGNATURES. PT IS AWAITING A BED AT A LOCATION OUTSIDE OF [place] THAT THE [facility] WILL [facility] IF ONE IS AVAILABLE AND CASE MANAGEMENT IS IN COMMUNICATIONS WITH THE FAMILY AND PT REGARDING THIS. IV IN PT'S RIGHT HAND IS PAINFUL AND WAS REMOVED THIS EVENING, PRESSURE BANDAGE APPLIED.
--- NOTE | 2023-03-09 19:46 | NUR ---
REPORT RECIEVED FROM DAY SHIFT RN. PATIENT RESTING IN BED AND STATES HE HAS NO FURTHER NEEDS. CALL LIGHT IN REACH.
[2023-03-09 20:02] VITALS: BP 112/70
--- NOTE | 2023-03-09 20:50 | NUR ---
PATIENT RESTING IN BED. AWAKENS EASILY. PATIENT UP TO BATHROOM WITH MINIMAL SBA TO VOID. VS AND I&Os OBTAINED AND DOCUMENTED. LEFT UPPER ARM IV INFILTRATED AND REMOVED. RIGHT HAND IV FLUSHED AND WNL. IV FLUID INFUSING PER ORDER INTO RIGHT HAND IV. ASSESSMENT COMPELTE. PATIENT HAS CLEAR LUNG SOUNDS BILAT. NO PAIN OR NEASEA AT THIS TIME. PATIENT REPORTS NO FURTHER NEEDS. CALL LIGHT IN REACH.
--- NOTE | 2023-03-09 22:19 | NUR ---
PATIENT IN BED RESTING ON BACK WITH EYES CLOSED. REPIRATIONS EVEN AND UNLABORED. NEW BAG IV FLUIDS INFUSING PER ORDER. CALL LIGHT IN REACH.
--- NOTE | 2023-03-10 00:16 | NUR ---
PATIENT IN BED RESTING ON BACK WITH EYES CLOSED. RESPIRATIONS EVEN AND UNLABORED. IV FLUIDS INFUSING PER ORDER. CALL LIGHT IN REACH.
--- NOTE | 2023-03-10 01:43 | NUR ---
PATIENT RESTING IN BED ON LEFT SIDE WITH EYES CLOSED. RESPIRATIONS EVEN AND UNLABORED. CALL LIGHT IN REACH.
--- NOTE | 2023-03-10 03:51 | NUR ---
CALL LIGHT ANSWERED. PT UP TO BR WITH MINIMAL SBA TO VOID 300 ML ORANGE CONCENTRATED URINE. BACK TO BED, MK WELL. ORAL CARE SUPPLIES PROVIDED. AFTER USING ORAL SWAB PT WITH DRY HEAVES AND NAUSEA. PRN FOR N/V ADMIN PER EMAR. PT REPORTS BEING UNABLE TO SWALLOW SECRETIONS AND "SPITS THEM OUT." HOB ELEVATED. KLEENEX AND WARM BLANKET PROVIDED. NO FURTHER NEEDS.
--- NOTE | 2023-03-10 04:09 | NUR ---
PATIENT IN BED ON BACK WITH EYES OPEN. PATIENT STATES HE IS DOING OK AND HAS NO CURRENT NEEDS. RESPIRATIONS EVEN AND UNLABORED. IV FLUIDS INFUSING PER ORDER. CALL LIGHT IN REACH.
[2023-03-10 06:29] VITALS: BP 114/63
--- NOTE | 2023-03-10 06:44 | NUR ---
PATIENT RESTING IN BED WITH EYES CLOSED. AWAKENS EASILY. VS AND I&Os OBTAINED AND RECORDED. ASSESSMENT COMPLETE. PATIENT DENIES PAIN OR NAUSEA. NO FURTHER NEEDS. CALL LIGHT IN REACH. IV FLUIDS INFUSING PER ORDER.
--- NOTE | 2023-03-10 07:10 | NUR ---
REPORT RECEIVED FROM CASTING TESTER RN ISMAEL. PATIENT IS RESTING WITH EYES CLOSED. RESPIRATIONS ARE EVEN AND UNLABORED. CALL LIGHT AND PERSONAL BELONGINGS ARE WITHIN REACH.
--- NOTE | 2023-03-10 08:07 | NUR ---
SPOKE WITH ABOUT PATIENTS URINE BEING QUANTITY SUFFICIENT BUT CONCENTRATED. MD GAVE VERBAL ORDER TO INCREASE IV D5LR TO 125 ML/HR. ALSO NOTIFIED OF THE IV IN THE LEFT FOREARM INFILTRATING AND HAVING AN IV IN THE RIGHT HAND. MD GAVE VERBAL ORDER FOR A MIDLINE.
--- NOTE | 2023-03-10 09:05 | NUR ---
LEFT MESSAGE FOR [facility] [phone] TO FOLLOW UP ON POSSIBLE TRANSFER TO [facility].
[2023-03-10 09:57] VITALS: BP 122/70
--- NOTE | 2023-03-10 09:57 | NUR ---
PT RECEIVING NURSING CARE. DID NOT INTERRUPT. PRAYED FOR DISCERNMENT OF PATH FORWARD AND COMFORT FROM DISTRESS.
--- NOTE | 2023-03-10 10:08 | NUR ---
PATIENT 0900 PROTONIX ADMINISTERED PER THE EMAR. RIGHT HAND IV SITE IS CLEAN, DRY, AND INTACT. IV FLUSHED WITH 10 ML NORMAL SALINE. D5LR RUNNING AT 125 ML/HR. PATIENT ON ROOM AIR AND LUNG SOUNDS ARE CLEAR BILATERALLY IN ALL LUNG JAMA. STRONG RADIAL AND PEDAL PULSES, CAPILLARY REFILL LESS THAN THREE SECONDS IN THE UPPER AND LOWER EXTREMITIES. LEFT UPPER ARM IV INFILTRATED. MODERATE SWELLING OBSERVED. PATIENT STATED NO PAIN OR NAUSEA AT THIS TIME. PATIENT GIVEN ICE CHIPS FOR COMFORT AND TOLERATED. PATIENT STATED NO FURTHER NEEDS AT THIS TIME. CALL LIGHT AND PERSONAL BELONGINGS ARE WITHIN REACH.
--- NOTE | 2023-03-10 10:23 | NUR ---
SPOKE WITH VERONIKA AT [facility], NO BED AVAILABLE IN [place] AT THIS TIME. PATIENT IS CURRENTLY #1 ON THE WAITLIST. INFORMATION FOR CONTACT TO DR. BONILLA GIVEN AND TRANSPORT DISCUSSED. PER VERONIKA WHEN THE PATIENT IS ACCEPTED CASE MANAGEMENT STAFF TO ARRANGE TRANSPORT. VERONIKA STATES THE [facility] WILL PROVIDE AN AUTH TO COVER TRANSPORT, BUT THEIR TRANSPORT COMPANY IS UNABLE TO ASSIST. WILL UPDATE DR. BONILLA AND PATIENT.
[2023-03-10 13:31] VITALS: BP 114/69
--- NOTE | 2023-03-10 15:23 | NUR ---
PATIENT IS RESTING IN THE BED WITH EYES CLOSED. RESPIRATIONS ARE EVEN AND UNLABORED. FAMILY MEMBER IS RESTING IN THE CHAIR IN THE PATIENTS ROOM. CALL LIGHT AND PERSONAL BELONGINGS ARE WITHIN REACH.
[2023-03-10 18:23] VITALS: BP 120/74
--- NOTE | 2023-03-10 19:22 | NUR ---
REPORT RECIEVED FROM DAY SHIFT RN. PATIENT RESTING IN BED WITH EYES CLOSED. RESPIRATIONS EVEN AND UNLABORED. IV FLUIDS INFUSING PER ORDER. CALL LIGHT IN REACH.
[2023-03-10 21:13] VITALS: BP 118/59
--- NOTE | 2023-03-10 21:51 | NUR ---
PATIENT RESTING IN BED WITH EYES CLOSED. RESPIRATIONS EVEN AND UNLABORED. BROTHER AT BEDSIDE STAYING OVER NIGHT. VS OBTAINED AND RECORDED. IV FLUID INFUSING PER ORDER. ASSESSMENT COMPLETE. NO PAIN OR NAUSEA AT THIS TIME. IV SITE WNL. BROTHER PROVIDED WITH BLANKETS AND PILLOWS FOR THE COUCH FOR COMFORT. NO FURTHER NEEDS. CALL LIGHT IN REACH.
--- NOTE | 2023-03-10 21:57 | NUR ---
PATIENT RESTING ON BACK WITH EYES CLOSED. RESPIRATIONS EVEN AND UNLABORED. CALL LIGHT IN REACH. BROTHER AT BEDSIDE.
--- NOTE | 2023-03-10 23:46 | NUR ---
PATIENT RESTING IN BED. PATIENT STATES NO CURRENT NEEDS AT THIS TIME. CALL LIGHT IN REACH. BROTHER RESTING ON COUCH IN ROOM.
--- NOTE | 2023-03-11 00:48 | NUR ---
PATIENT UP TO BATHROOM TO VOID DARK COLORED URINE. PATIENT EXPERIENCING NAUSEA. PRN NAUSEA MEDICATION ADMINISTERED PER PATIENT REQUEST. NEW BAG IV FLUID INFUSING PER ORDER. PATIENT BACK IN BED. BROTHER IN ROOM ON CHAIR. NO FURTHER NEEDS NOTED. CALL LIGHT IN REACH.
--- NOTE | 2023-03-11 02:20 | NUR ---
PATIENT RESTING IN BED ON LEFT SIDE OF BODY. IV FLUID INFUSING PER ORDER. RESPIRATIONS EVEN AND UNLABORED. CALL LIGHT IN REACH.
--- NOTE | 2023-03-11 04:50 | NUR ---
PATIENT RESTING IN BED WITH EYES CLOSED. RESPIRATIONS EVEN AND UNLABORED. BROTHERS IN ROOM. CALL LIGHT IN REACH.
[2023-03-11 06:25] VITALS: BP 138/69
--- NOTE | 2023-03-11 06:50 | NUR ---
PATIENT RESTING IN BED. PATIENT UP TO BATHROOM WITH SBA TO VOID DARK YELLOW URINE. VS AND I&Os OBTAINED AND RECORDED. ASSESSMENT COMPLETE. NO PAIN AT THIS TIME. BROTHERS AT BEDSIDE. NO FURTHER NEEDS. CALL LIGHT IN REACH.
--- NOTE | 2023-03-11 07:10 | NUR ---
REPORT RECEIVED FROM EXPANDED FUNCTION DENTAL ASSISTANT RN ISMAEL. PATIENT AND FAMILY ARE TALKING TO . PATIENT CALL LIGHT AND PERSONAL BELONGINGS ARE WITHIN REACH.
--- NOTE | 2023-03-11 09:09 | NUR ---
MS CUI. APPROX 15 MINUTES. LISTENED EMPATHETICALLY TO BROTHER IN HALLWAY. PROVIDED PRAYER. PT RECEIVING NURSING CARE. BOTHER UTUILIZED SPIRITUAL RESOURCES; DEMONSTRATED ACCEPTANCE; EXPRESSED CONCERNS.
--- NOTE | 2023-03-11 09:09 | NUR ---
CALL FROM [facility]ONIKANEREIDA [facility]TI[facility]. STATES NO BED AVAILABLE THIS AM, BUT PATIENT IS THE ONLY ONE ON THE TRANSPORT LIST AT THIS TIME. NUMBER PROVIDED FOR CHARGE NURSE IN CASE PATIENT HAS A BED AVAILABLE DURING THE HOLIDAY. THIS FACILITY WILL SET UP TRANSPORTATION WHEN BED AVAILABLE. POINT OF CONTACT FOR THURSDAY IS AOD [phone]. NUMBER PROVIDED TO CHARGE NURSE AND INFORMED THAT IS THE NUMBER TO CALL TOMORROW TO SEE IF A BED IS AVAILABLE.
[2023-03-11 09:18] VITALS: BP 108/62
[2023-03-11 09:33] VITALS: BP 120/42
--- NOTE | 2023-03-11 09:35 | NUR ---
PATIENT FULL ASSESSMENT COMPLETE AND DOCUMENTED IN THE CHART. PATIENT FULL ASSESSMENT UNREMARKABLE. PATIENT ON ROOM AIR AND EXPERIENCING NO PAIN. GENERALIZED EDEMA IN THE LEFT ARM AFTER PREVIOUS LEFT UPPER ARM IV INFILTRATED. PATIENT AFFECT IS FLAT AND THIS IS THE PATIENT BASELINE. PATIENTS FAMILY MEMBER IS AT THE PATIENTS BEDSIDE AND THEY ARE PLAYING [employer]. PATIENT 0900 PROTONIX ADMINISTERED PER THE EMAR. ZOFRAN ADMINISTERED WELL THE PATIENT WAS EXPERIENCING NAUSEA. PATIENT PATRICK FAMILY STATED NO FURTHER NEEDS AT THIS TIME. CALL LIGHT AND PERSONAL BELONGINGS ARE WITHIN REACH.
--- NOTE | 2023-03-11 13:30 | NUR ---
UR NOTE MCG DEHYDRATION (ISC) INPATIENT 03/09/23 VARIANCE GL DAY 2 03/10/23 VARIANCE GL DAY 2
[2023-03-11 14:45] VITALS: BP 128/68
--- NOTE | 2023-03-11 15:40 | NUR ---
PATIENT RESTING IN BED WITH EYES CLOSED. RESPIRATIONS ARE EVEN AND UNLABORED. PATIENT FAMILY AT BEDSIDE SLEEPING IN THE CHAIR. CALL LIGHT AND PERSONAL BELONGINGS ARE WITHIN REACH.
[2023-03-11 18:22] VITALS: BP 111/64
--- NOTE | 2023-03-11 20:00 | NUR ---
Assumed care Pt in bed with eyes closed. demies pain or needs. offered to help reposition, pt denies. call light in place, bed in low position, locked.
[2023-03-11 20:09] VITALS: BP 132/66
--- NOTE | 2023-03-11 21:15 | NUR ---
Pt in bed, denies pain, assessment completed. denies needs when asked. IV fluids infusing. call light in reach, bed in low position, locked.
--- NOTE | 2023-03-11 22:23 | NUR ---
Pt in bed with eyes closed but spitting some phlegm into a tissue. I asked if he was vomitting and he said no, just phlegm. Denies nausea. Denies offer of toothette to clean mouth. Pt denies other needs, fluids infusing
[2023-03-12 00:15] VITALS: BP 130/61
[2023-03-12 05:05] VITALS: BP 127/73
--- NOTE | 2023-03-12 07:37 | NUR ---
REPORT RECEIVED FROM RAFAELA VASQUEZ. PT RESTING IN BED, REQUESTS 7-UP AND THANKSGIVING DINNER. EDUCATION DONE WITH PT REGARDING HIS CURRENT DIAGNOSIS AND RISKS OF ATTEMPTING TO EAT. PT STATES "I'M JUST GOING TO CHEW IT AND SPIT IT OUT." 7-UP PROVIDED PER REQUEST AND WITHIN ORDERS. PTS PRIMARY RN, RONI, AT BEDSIDE. DR CHAMBERLAIN AND DR BONILLA UPDATED ON PT STATUS AND REQUESTS. MDs STATE FOR PT TO REMAIN ON ONLY CLEAR LIQUIDS. PT UPDATED. NO ADDITIONAL NEEDS AT THIS TIME. CALL LIGHT WITHIN REACH. BED RAILS UP. THIS RN ASSUMING CARE OF PT WITH RONI RUSSO.
--- NOTE | 2023-03-12 07:40 | NUR ---
CALL PLACED TO [facility] REGARDING BED AVALIABILITY. THIS RN SPOKE WITH HEATHER WHO STATES THERE ARE NO MED/SURG BEDS AVALIABLE. VANDANA KING CALL BACK TO [facility]. PTS PRIMARY RN UPDATED.
--- NOTE | 2023-03-12 07:45 | NUR ---
REPORT RECIEVED FROM RAFAELA VASQUEZ. PT LYING IN BED AWAKE AND ALERT. NEW FLUID BAG PLACED PER ORDER (SEE EMAR). BED RAILS UP, CALL LIGHT WITHIN REACH. ASSUMING CARE OF PT WITH RAFAELA DIALLO.
[2023-03-12 09:31] VITALS: BP 123/70
--- NOTE | 2023-03-12 09:34 | NUR ---
MORNING ASSESSMENT AND MEDICATIONS DUE, GIVEN (SEE EMAR). PT DENIES HAVING ANY PAIN AT THIS TIME. IVF CONTINUOUS PER ORDER, SITE FLUSHED AND IS SLUGGISH, PT STATES "JUST KEEP TRYING TO USE THIS ONE" WHEN DISCUSSING OPTION TO OBTAIN ADDITIONAL IV SITE. PT STATES NO PAIN WITH INFUSION OF FLUIDS, BUT "SOME STINGING" WHEN PUSHING IV MEDICATION. PT CLOSES EYES MANY TIMES DURING ASSESSMENT AND APPEARS DROWSY. PT RESPONDS TO VOICE AND MOVEMENT AROUND ROOM, A+O TO ALL. WEAKNESS PRESENT IN ALL EXTREMETIES, PT DENIES NUMBNESS OR TINGLING. CAP REFILL BRISK <3 SECONDS IN ALL EXTREMETIES. GENERALIZED EDEMA PRESENT IN BILAT LOWER LEGS, +1 EDEMA IN BILAT FEET AND ANKLES, GENERALIZED EDEMA IN LUE, +1 EDEMA TO RUE. SCDs PLACED PER ORDER. BOWEL TONES HYPOACTIVE, PT STATES "I DON'T REMEMBER WHEN ASKED ABOUT WHEN LAST BM WAS, ACCORDING TO CHART LAST BM 03/05/23. PT CONTINUES TO BE ON CLEAR LIQUID DIET, PT HAS NOT EATEN ANY OF BREAKFAST TRAY, REFUSED WHEN OFFERED TO PLACE TRAY OVER BED. PT VOIDING DARK URINE, STATES THERE IS NO PAIN WITH URINATION OR URGENCY. PT REMAINS IN BED, REFUSES TO AMBULATE TO CHAIR, FALLS ASLEEP WHILE THIS RN IN ROOM. PT DENIES NEED TO USE RESTROOM AT THIS TIME. PT DENIES ANY FURTHER NEEDS AT THIS TIME, CALL LIGHT WITHIN REACH, BED RAILS UP.
--- NOTE | 2023-03-12 10:31 | NUR ---
PT RESTING IN BED WITH EYES CLOSED, RR 18 BREATHING EVEN AND UNLABORED. CALL LIGHT WITHIN REACH, BED RAILS UP.
--- NOTE | 2023-03-12 11:26 | NUR ---
PT CALL LIGHT ON. PT REQUESTS ASSISTANCE UP TO VOID. PT UP TO STAND WITH ONE PERSON ASSIST. DEPENDS AND PANTS WET. PT ASSISTED WITH VOIDING INTO URINAL, VOIDS 125ML DARK YELLOW/CHECO URINE. AB CARE DONE. DEPENDS AND PANTS CHANGED. 1 PERSON ASSIST BACK TO BED. PT DECELINES TIME UP TO CHAIR. PT DECLINES BREAFKAST TRAY. NOTED THAT PT HAS COOKIES (DELIVERED FROM HOME) AT BEDSIDE. COOKIES PLACED WITH PTS BELONGINGS. ADDITIONAL EDUCATION DONE REGARDING PTS CLEAR LIQUID DIET STATUS. PT REPORTS MILD NAUSEA, DENIES PAIN. NO ADDITIONAL NEEDS AT THIST PATRICIO. CALL LIGHT WITHIN REACH. BED RAILS UP.
--- NOTE | 2023-03-12 12:20 | NUR ---
HOURLY ROUNDING, PT REFUSES LUNCH TRAY BUT FOR THE GRAPE JUICE. PT REPORTS NAUSEA, REQUESTS MEDICATION, GIVEN (SEE EMAR). PT REQUESTS COOL CLOTH, GIVEN. PT STATES NO FURTHER NEEDS AT THIS TIME, CALL LIGHT WITHIN REACH.
--- NOTE | 2023-03-12 13:26 | NUR ---
AFTERNOON ASSESSMENT. PT LYING IN BED, AWAKENS TO THIS RN ENTERING ROOM. PT REQUESTS TO USE RESTROOM, AMBULATES VIA SBA AND LINE/TUBE MANAGEMENT TO RESTROOM. PT VOIDS DARK COLOR URINE. PT BACK TO BED, REFUSES TO BE UP TO CHAIR. SCDs IN PLACE. PT DENIES ANY PAIN AT THIS TIME. IVF CONTINUOUS PER ORDER. NO CHANGE IN IV SITE SINCE MORNING ASSESSMENT. PT CONTINUES TO BE DROWSY, NO CHANGE IN MUSCLE STRENGTH SINCE MORNING ASSESSMENT. EDEMA IN BILAT. FEET/ANKLES HAS INCREASED SINCE THIS MORNING, BUT REMAINS 1+. EDEMA IN ARMS AND LEGS REMAINS UNCHANGED. HYPOACTIVE BOWEL TONES CONTINUE, PT REFUSING HIS LUNCH BUT STATES "I MIGHT DRINK SOME OF THE GRAPE JUICE". PT TALKS MINIMALLY JUST TO ANSWER QUESTIONS, NOT CHANGED SINCE THIS MORNING.
[2023-03-12 13:40] VITALS: BP 127/70
--- NOTE | 2023-03-12 15:35 | NUR ---
HOURLY ROUNDING, IV PUMP BEGINS ALARMING WHILE THIS RN IN ROOM, NEW BAG OF IVF PLACED (SEE EMAR). PT DENIES PAIN OR NAUSEA AT THIS TIME, STATES HE IS DONE WITH LUNCH TRAY, PT HAS NOT HAD ANYTHING FROM LUNCH TRAY. PT CONTINUES TO REFUSE AMBULATING TO CHAIR. PT CONTINUES TO BE DROWSY AND TALKS TO NURSES WITH EYES CLOSED. PT STATES NO FURTHER NEEDS AT THIS TIME, CALL LIGHT WITHIN REACH, BED RAILS UP.
--- NOTE | 2023-03-12 16:38 | NUR ---
HOURLY ROUNDING. PT STATES THAT "EVERY ONCE IN AWHILE I MIGHT FEEL A LITTLE NAUSEAS". PT DENIES NEED FOR NAUSEA MEDICATION AT THIS TIME AND STATES HE WILL CALL IF NEEDED. PT BROTHER AND NEPHEW AT THE BEDSIDE, PT STATES NO FURTHER NEEDS AT THIS TIME, CALL LIGHT WITHIN REACH, BED RAILS UP.
--- NOTE | 2023-03-12 17:00 | NUR ---
PT HERE FOR DICKSON, DEHYDRATION. PT AMBULATING TO RESTROOM AND BED WITH SBA AND LINE AND TUBE MANAGEMENT. CLEAR LIQUID DIET ORDERED, MINIMAL PO INTAKE THIS SHIFT. PT STATES HE DOES NOT REMEMBER THE LAST TIME HE HAD A BM. PT A+O TO ALL THROUGHOUT SHIFT, IS DROWSY ALL OF TODAY AND REFUSES TO AMBULATE TO CHAIR. IV SLUGGISH AND PT STATES IT "SOMETIMES STINGS" WHEN PUSHING IV MEDICATION, NEW IV START DISCUSSED WITH PT, REFUSED. EDEMA PRESENT IN ALL EXTREMETIES. LUNG SOUNDS CLEAR THROUGHOUT SHIFT, PT COUGHING UP CLEAR THICK PHLEGM THIS EVENING, REPOSITIONED AND EDUCATION PROVIDED ON DEEP BREATHING. PT DENIES PAIN ALL SHIFT, COMPLAINS OF NAUSEA OCCASIONALLY, NAUSEA MEDICATION GIVEN (SEE EMAR). [facility]. PT HAS NOT USED CALL LIGHT THIS SHIFT, INTENTIONAL HOURLY ROUNDING.
--- NOTE | 2023-03-12 17:50 | NUR ---
ASSISTED PT TO THE BATHROOM. HE WAS VERY SLOW TO RESPOND VERBALLY AND WEAK. TRYING TO GET OUT OF BED, HE TRIED FOR 2-3 MINUTES TO GET OUT OF BED ON HIS OWN AND NEEDED ME TO HELP HIM OUT OF BED. HE VOIDED 125ML OF COLA COLORED URINE. HE WAS ABLE TO GET HIMSELF BACK INTO BED, BUT SLOWLY. ADVISED HIS NURSE, BRITTANEY.
[2023-03-12 17:58] VITALS: BP 131/74
--- NOTE | 2023-03-12 18:30 | NUR ---
HOURLY ROUNDING. PT REQUESTS NAUSEA MEDICATION IF DUE, GIVEN (SEE EMAR). PT DENIES HAVING ANY PAIN. PT A+O TO ALL. PT STATES NO FURTHER NEEDS AT THIS TIME, CALL LIGHT WITHIN REACH, BED RAILS UP.
[2023-03-12 20:00] VITALS: BP 125/73
--- NOTE | 2023-03-13 02:20 | NUR ---
PT USED CALL LIGHT, STOOD AT EDGE OF BED, SLIGHTLY UNSTEADY, USED URINAL, VOIDED 150CC CHECO COLORED URINE. BACK TO BED. REQUIRED SEVERAL CUES TO FOLLOW ISNTRUCTIONS, CALL LIGHT AND FLUIDS AT BEDSIDE, IVF INFUSING.
[2023-03-13 05:37] VITALS: BP 125/97
--- NOTE | 2023-03-13 07:46 | NUR ---
RECIEVED REPORT FROM RAFAELA VASQUEZ. PT LYING IN BED WITH BROTHER AT THE BEDSIDE. PT IV FLUSHED AND NOT PATENT, EDUCATION PROVIDED BY RAFAELA IRIZARRY ON OPTION OF PICC LINE TO WHICH PT STATES "YOU GOTTA DO WHAT YOU GOTTA DO". PT STATES NO FURTHER NEEDS AT THIS TIME, CALL LIGHT WITHIN REACH, BED RAILS UP.
--- NOTE | 2023-03-13 08:43 | NUR ---
RIGHT HAND IS SWOLLEN, IV LEAKING. ATTEMPTED TO FLUSH, PATIENT REPORTS IV SITE IS VERY PAINFUL. IV FLUIDS STOPPED AT THIS TIME. PATIENT AGREES TO HAVING A PICC LINE PLACED, IF INDICATED. WILL UPDATE CHARGE NURSE TO INITIATE PICC PLACEMENT PER PROVIDER ORDER.
--- NOTE | 2023-03-13 09:15 | NUR ---
CALL PLACED TO [facility] REGARDING BED AVALIABILITY. THIS RN SPOKE WITH VANDANA AND HEATHER WHO STATE THERE ARE STILL NO MED/SURG BEDS AVALIABLE. RIGGING UP WORKER AND PTS PRIMARY RN UPDATED.
--- NOTE | 2023-03-13 09:45 | NUR ---
CALL RECEIVED FROM VERONIKA AT [facility] WHO STATES HE WAS ACTUALLY TRYING TO REACH THE [facility] IN REGARDS TO PT'S CASE. UPDATES PROVIDED. VERONIKA STATES HE WILL CALL [facility] AND RETURN CALL THIS AFTERNOON WITH ANY UPDATES. PTS PRIMARY RN UPDATED.
[2023-03-13 09:48] VITALS: BP 125/70
--- NOTE | 2023-03-13 09:49 | NUR ---
THIS RN ATTEMPTS TO FLUSH IV, NOT PATENT, PT COMPLAINS OF SEVERE PAIN WHEN ATTEMPTING SLOW FLUSH. IV DC'D, PT AWAITING EXPECTED PICC LINE. PT STATES NO FURTHER NEEDS AT THIS TIME, STATES "LATER, MAYBE TOMORROW I WOULD LIKE TO TAKE A SHOWER". PT SAYS HE "WILL THINK ABOUT IT" WHEN ASKED IF HE WOULD LIKE TO TAKE ONE TODAY. ORAL CARE OFFERED, REFUSED. BREAKFAST TRAY OFFERED, PT REFUSES AT THIS TIME. PT STATES NO FURTHER NEEDS AT THIS TIME, CALL LIGHT WITHIN REACH, BED RAILS UP.
--- NOTE | 2023-03-13 10:40 | NUR ---
THIS RN TO ROOM TO ASSIST WITH IV START. IV STARTED TO LEFT HAND PER PROTOCOL. PT NOTED TO BE VERY EDEMATOUS THROUGHOUT ARMS AND LEGS. IV FLUIDS RESUMED. MORNING MEDICATIONS GIVEN (SEE MAR). PT REPORTS HE IS NOW WILLING TO CONSIDER A PICC OR CENTRAL LINE FOR IV TPN AND FLUIDS. PTS PRIMARY RN AND BODY SHOP FLOORPERSON UPDATED REGARDING PTS IV STATUS AND WISHES. NO ADDITIONAL NEEDS A THIS TIME. CALL LIGHT WIHTIN REACH. BED RAILS UP.
--- NOTE | 2023-03-13 10:55 | NUR ---
PT APPEARS TO BE MORE PALE THAN PREVIOUS ASSESSMENT. PT UP TO RESTROOM, VOIDS DARK COLOR URINE, AMBULATES BACK TO BED WITH X1 PERSON ASSIST. PT COMPLAINS OF "SOME DIZZINESS". PT CONTINUES TO APPEAR DROWSY. PT STATES NO FURTHER NEEDS AT THIS TIME, CALL LIGHT WITHIN REACH, BED RAILS UP.
--- NOTE | 2023-03-13 11:10 | NUR ---
THIS RN CALLS DR. BONILLA TO UPDATE ON PT STATUS AND ASSESSMENT. MD STATES HE WILL COME TO BEDSIDE. NEW ORDERS GIVEN, PLACED, REPEAT BACK PERFOMED.
--- NOTE | 2023-03-13 11:30 | NUR ---
DR. BONILLA AT THE BEDSIDE DISCUSSING PLAN OF CARE. LAB DRAW FROM IV IN L HAND ATTEMPTED, LAB CALLED TO BEDSIDE TO COMPLETE LAB DRAW, IV REMAINS PATENT, FLUSHED. PT STATES NO FURTHER NEEDS AT THIS TIME, CALL LIGHT WITHIN REACH, BED RAILS UP.
[2023-03-13 11:51] LABS: BASOPHILS 0.1 % (0-2); EOSINOPHILS 0.1 % (0-6); HEMOGLOBIN 8.5 g/dL (12.0-18.0); LYMPHOCYTES 5.8 % (24-44); MCH 34.4 (27-36); MCHC 34.2 g/dl (30-36); MCV 100.5 fl (81-99); MONOCYTES 10.8 % (0-12); NEUTROPHILS 83.2 % (39-80); PLATELET COUNT 204 K/uL (140-440); RBC 2.49 M/ul (4.3-5.7); RDW 21.1 (10.5-15.0)
[2023-03-13 12:06] LABS: ALBUMIN 1.5 g/dL (3.4-5.0); ALBUMIN/GLOBULIN RATIO 0.44 (1.1-2.4); BILIRUBIN, TOTAL 2.6 ng/dL (0.2-1.0); BUN/CREATININE RATIO 18.08 (6.0-28.6); CALCIUM 7.7 mg/dL (8.5-10.1); CREATININE, SERUM 0.94 mg/dL (0.70-1.30); INR 1.31 (0.80-1.30); MAGNESIUM 1.7 mg/dL (1.8-2.4); PROTEIN, TOTAL 4.9 g/dL (6.4-8.2); PROTIME 15.7 Sec (11.2-14.2)
[2023-03-13 13:07] VITALS: BP 130/74
--- NOTE | 2023-03-13 13:10 | NUR ---
AFTERNOON ASSESSMENT. PT LYING IN BED, CONTINUES TO BE DROWSY, A+O TO ALL. ALL EXTREMETIES CONTINUE TO BE WEAK, NO CHANGE IN PULSES OR EDEMA. R HAND IV PATENT. PT REPORTS SENSATION TO ALL EXTEMETIES REMAINS INTACT. BOWEL TONES CONTINUE TO BE HYPOACTIVE, PT CONSUMING SMALL AMOUNT OF CLEAR LIQUIDS PROVIDED. VOIDING QUANTITY SUFFICIENT, URINE CONTINUES TO BE DARK IN COLOR. PT DENIES ANY PAIN OR NAUSEA AT THIS TIME, CONTINUES TO OCCASIONALLY COUGH UP CLEAR SPUTUM, LUNG SOUNDS CONTINUE TO BE CLEAR. PT STATES NO FURTHER NEEDS AT THIS TIME. CALL LIGHT WITHIN REACH, BED RAILS UP.
[2023-03-13 13:44] VITALS: BP 135/76
--- NOTE | 2023-03-13 14:15 | NUR ---
HOURLY ROUNDING. PT VISITING WITH FAMILY AT THE BEDSIDE. PT STATES NO NEEDS AT THIS TIME, CALL LIGHT WITHIN REACH, BED RAILS UP.
--- NOTE | 2023-03-13 14:40 | NUR ---
SPOKE WITH STAFF NURSE YOEL REGARDING PATIENTS LABS, AND PLAN IF [place] CONTINUES TO NOT HAVE BED. SHE STATES SHE HAS DISCUSSED WITH DR CHAMBERLAIN AND HE PLANS TO PUT A PORT-A-CATH IN TOMORROW. SHE STATES SHE WAS ABLE TO PLACE A SMALL IV TODAY, ALTHOUGH PATIENT IS EDEMATOUS. SHE STATES SHE IS GOING TO TALK WITH DR MCCARTNEY WHEN HE COMES DOWN REGARDING POSSIBLE CENTRAL LINE. DISCUSSED WITH [facility] TURNER OFF. SHE STATES DR BONILLA HAS ORDERED PPN. DISCUSSED THAT STAFF NURSE IS CONCERNED WITH PATIENT STATUS AND PERHAPS [place] NEEDS TO EITHER TAKE PATIENT OR OKAY HE GO TO ANOTHER FACILITY FOR WORKUP FOR PROBABLE ESOPHAGEAL CANCER. NO PATHOLOGY REPORT FOUND YET IN CHART. SPOKE WITH GEORGE AT [facility] OFFICE. SHE STATES THEY ARE STILL UNABLE TO FIND A MED/SURG BED, THAT VERONIKA IS WORKING ON THIS AND HE IS IN A MEETING. DISCUSSED WITH GEORGE THAT WE HAVE BEEN WAITING SEVERAL DAYS FOR TRANSFER AND PATIENT MIGHT NEED TO BE SENT TO ANOTHER TERTIARY FACILITY IF [place] IS NOT ABLE TO ACCOMODATE SOON. SHE STATES SHE WILL UPDATE VERONIKA. ASKED FOR THEM TO CALL IVANA OUR NURSING TURNER OFF AND CONTACT INFO GIVEN. UPDATED IVANA AND CHARGE NURSE.
--- NOTE | 2023-03-13 15:01 | NUR ---
SPOKE WITH DR CHAMBERLAIN ABOUT PTS CURRENT LABS AND CONCERNS THAT WERE EXPRESSED BY THE NURSING STAFF ABOUT PTS ABILITY TO HAVE A PORTACATH PLACED TOMORROW. DR CHAMBERLAIN DID NOT GIVE ANY NEW ORDERS. WHEN ASKED IF IT WOULD BE POSSIBLE TO PLACE A CENTRAL LINE TONIGHT INSTEAD, THIS RN IS TOLD NO. ALSO ASKED IF THE PORTACATH COULD BE PLACED TODAY AND TOLD NO. PTS PRIMARY RN NOTIFIED.
--- NOTE | 2023-03-13 15:34 | NUR ---
DR CHAMBERLAIN CALLED THIS RN BACK AFTER REVIEWING LABS AND REPORTED THAT HE HAS SPOKE WITH DR MCCARTNEY ABOUT THE PT AND THEY WILL MAKE A PLAN FOR FOLLOW UP. DR MCCARTNEY UPDATED ON PTS STATUS AND NURSING CONCERNS BY MED SURG NURSE. NO NEW ORDERS AT THIS TIME.
--- NOTE | 2023-03-13 15:43 | NUR ---
HOURLY ROUNDING. PT UP TO USE RESTROOM, VOIDS DARK URINE. PT STATES HE IS HAVING NAUSEA, REQUESTS NAUSEA MEDICATION, GIVEN (SEE EMAR). NEW ICE WATER PROVIDED PER PT REQUEST. PT STATES NO FURTHER NEEDS AT THIS TIME, CALL LIGHT WITHIN REACH, BED RAILS UP.
--- NOTE | 2023-03-13 16:01 | NUR ---
UR NOTE MCG DEHYDRATION (ISC) INPATIENT 03/13/23 VARIANCE GL DAY 2 LOS DAY 9
[2023-03-13 16:41] VITALS: BP 125/69
--- NOTE | 2023-03-13 17:22 | NUR ---
HOURLY ROUNDING AND MEDICATION DUE, GIVEN (SEE EMAR). PT DENIES PAIN OR NAUSEA AT THIS TIME. PT STATES NO FURTHER NEEDS AT THIS TIME, CALL LIGHT WITHIN REACH, BED RAILS UP.
--- NOTE | 2023-03-13 18:23 | NUR ---
HOURLY ROUNDING AND MEDICATION DUE, GIVEN (SEE EMAR). PT LYING IN BED WITH EYES CLOSED, RR 16 EVEN AND UNLABORED. CALL LIGHT WITHIN REACH, BED RAILS UP.
--- NOTE | 2023-03-13 18:41 | NUR ---
PT HERE FOR DICKSON, DEHYDRATION. PT AMBULATING TO RESTROOM AND BED WITH SBA AND LINE AND TUBE MANAGEMENT. CLEAR LIQUID DIET ORDERED, MINIMAL PO INTAKE THIS SHIFT. PT STATES HE DOES NOT REMEMBER THE LAST TIME HE HAD A BM. PT A+O TO ALL THROUGHOUT SHIFT, IS DROWSY ALL OF TODAY AND REFUSES TO AMBULATE TO CHAIR. NEW IV PLACED THIS SHIFT IN L HAND, R HAND IV DC'D. PT AGREES TO OPTION OF CENTRAL/PICC LINE TODAY, AWAITING PLACEMENT. EDEMA PRESENT IN ALL EXTREMETIES. LUNG SOUNDS CLEAR THROUGHOUT SHIFT, PT COUGHING UP CLEAR THICK PHLEGM THIS EVENING, REPOSITIONED AND EDUCATION PROVIDED ON DEEP BREATHING. PT DENIES PAIN ALL SHIFT, COMPLAINS OF NAUSEA OCCASIONALLY, NAUSEA MEDICATION GIVEN (SEE EMAR). PT IS AWAITING A BED AVAILABLE AT THE [facility] SO HE CAN BE TRANSFERRED THERE. FAMILY VISITED PT TODAY. PT USES CALL LIGHT APPROPRIATELY THROUGHOUT SHIFT.
--- NOTE | 2023-03-13 19:25 | NUR ---
REPORT RECIEVED FROM JUAN C RUSSO AND RONI RUSSO. PATIENT RESTING IN BED WITH EYES CLOSED. BOARD UPDATED. CALL LIGHT WITHIN REACH. NO OTHER NEEDS AT THIS TIME.
[2023-03-13 20:08] VITALS: BP 121/64
--- NOTE | 2023-03-13 20:10 | NUR ---
ASSESSMENT AND VITAL SIGNS DONE. PATIENT UP TO BR, SBA. PATIENT BACK IN BED. IV INFUSING PER ORDER, SEE MAR. IV ASSESSED AND FLUSHED WITH 10 MLS OF NS, WNL. FRESH GOWN GIVEN. WARM BLANKET PROVIDED. CALL LIGHT WITHIN REACH. NO OTHER NEEDS AT THIS TIME.
--- NOTE | 2023-03-13 20:30 | NUR ---
pt TO BE NPO AT MIDNIGHT. NO CURRENT ORDER FOR IV MAINTENANCE FLUID ORDERS. PER EMAR, pt WAS PREVIOUSLY ON D5LR @125MLS/HR, THEN RECEIVED A DOSE OF IV AMINO ACIDS-DISCUSSED WITH DR MCCARTNEY PER REQUEST OF PRIMARY RAFAELA HERNANDEZ/ROSSANA. TELEPHONE ORDER READ BACK TO START IV MAINTENANCE FLUIDS, D5LR @ 125MLS/HR. PER DR MCCARTNEY, OKAY TO START IV FLUIDS AT MIDNIGHT. PRIMARY RAFAELA HERNANDEZ AND ROSSANA UPDATED AND MADE AWARE.
--- NOTE | 2023-03-13 22:51 | NUR ---
PATIENT CALLED FOR IV BEEPING. IVF INFUSING PER ORDER, SEE MAR. Pt STATES HE HAD SOME NAUSEA. PRN NAUSEA MEDICATION ADMINISTERED, SEE MAR. CALL LIGHT WITHIN REACH. NO OTHER NEED AT THIS TIME
--- NOTE | 2023-03-14 00:02 | NUR ---
PATIENT RESTING IN BED. Pt STATES HE DOESNT NEED ANYTHING AT THIS MOMENT. CALL LIGHT WITHIN REACH. NO OTHER NEEDS AT THIS TIME.
--- NOTE | 2023-03-14 02:56 | NUR ---
PATIENT RESTING IN BED WITH EYES CLOSED. RESP OBSERVED. CALL LIGHT WITHIN REACH. NO OTHER NEEDS AT THIS TIME.
--- NOTE | 2023-03-14 04:03 | NUR ---
PATIENT RESTING IN BED WITH EYES CLOSED. RESP OBSERVED. CALL LIGHT WITHIN REACH. NO OTHER NEEDS AT THIS TIME.
--- NOTE | 2023-03-14 04:20 | NUR ---
PATIENT CALLED TO USE THE RESTROOM. SBA TO BR. Pt HAD A BM. PATIENT BACK TO BED. CALL LIGHT WITHIN REACH. NO OTHER NEEDS AT THIS TIME
[2023-03-14 05:12] VITALS: BP 108/57
[2023-03-14 05:33] LABS: EOSINOPHILS 0.1 % (0-6); HEMATOCRIT 24.2 % (35.0-50.0); HEMOGLOBIN 8.3 g/dL (12.0-18.0); LYMPHOCYTES 6.8 % (24-44); MCH 34.4 (27-36); MCHC 34.2 g/dl (30-36); MCV 100.4 fl (81-99); MONOCYTES 10.1 % (0-12); PLATELET COUNT 229 K/uL (140-440); RBC 2.41 M/ul (4.3-5.7); RDW 20.7 (10.5-15.0)
[2023-03-14 05:47] LABS: ALBUMIN 1.5 g/dL (3.4-5.0); ALBUMIN/GLOBULIN RATIO 0.43 (1.1-2.4); ANION GAP 11.3 (7-21); BILIRUBIN, TOTAL 2.9 ng/dL (0.2-1.0); BUN/CREATININE RATIO 20.87 (6.0-28.6); CREATININE, SERUM 0.91 mg/dL (0.70-1.30); INR 1.73 (0.80-1.30); MAGNESIUM 2.3 mg/dL (1.8-2.4); PHOSPHORUS, INORGANIC 2.5 mg/dL (2.5-4.9); POTASSIUM 3.3 mmol/L (3.5-5.1); PROTIME 19.6 Sec (11.2-14.2)
--- NOTE | 2023-03-14 07:15 | NUR ---
RECIEVED REPORT FROM RAFAELA TRACY AND RAFAELA HERNANDEZ. PT RESTING IN BED WITH EYES CLOSED, BREATHING EVEN AND UNLABORED. AWAKENS TO RN VOICE, PT REPOSITIONED BY RNs D/T FEET OUT OF BED AND PT'S HEAD AGAINST BED RAIL. CALL LIGHT WITHIN REACH, BED RAILS UP. ASSUMING CARE OF PT WITH RAFAELA DIALLO.
--- NOTE | 2023-03-14 07:30 | NUR ---
REPORT RECEIVED FROM RAFAELA TRACY. THIS RN ASSUMING CARE OF PT WITH RAFAELA TAMAYO. PT RESTING IN BED, ASSISTED WITH REPOSITIONING (SEE NOTE BY RAFAELA TAMAYO). DR. CHAMBERLAIN UPDATED ON PT STATUS. AWAITING NEW ORDERS.
--- NOTE | 2023-03-14 07:54 | NUR ---
MORNING ASSESSMENT. PT DENIES PAIN OR NAUSEA. A+O TO ALL, REMAINS DROWSY. PT CONTINUES TO HAVE WEAKNESS IN ALL EXTREMETIES. LUNG SOUNDS CLEAR. EDEMA IN EXTEMETIES REMAINS, L HAND NON-PITTING, BLE +1 EDEMA FROM KNEE TO TOE. CAP REFILL <3 SECONDS IN ALL EXTREMETIES, SENSATION PRESENT IN ALL EXTREMETIES. PT DENIES ANY NUMBNESS OR TINGLING. NEW NON-SLIP SOCKS IN PLACE D/T SOCKS REMOVED BEING "TOO TIGHT" WITH THE SWELLING. PT HAD BOWEL MOVEMENT LAST NIGHT, BOWEL TONES CONTINUE TO BE HYPOACTIVE. NO DISTENTION OR TENDERNESS TO ABDOMEN. PT HAS BEEN NPO SINCE MIDNIGHT PER ORDER D/T PROCEDURE EXPECTED TODAY. PT UP WITH X1 PERSON ASSIST TO VOID, VOIDS IN URINAL AT THE BEDSIDE DARK COLOR URINE. PT HAS INCONTINENCE OF STOOL SMEAR, AB CARE COMPLETED AND NEW DEPENDS IN PLACE. PT'S SKIN IS PALE, NO WOUNDS PRESENT. PT WIPED DOWN WITH PRE-OP WIPES, LINENS CHANGED. PT HAS HICCUPS/BURP APPROXIMATELY EVERY 5 MINUTES, PT STATES THIS HAS BEEN HAPPENING PRIOR TO COMING TO THE HOSPITAL BUT "NOT SURE WHY". PT ASKS QUESTIONS THIS MORNING REGARDING HIS PLAN OF CARE, ANSWERED, PT STATES NO FURTHER QUESTIONS AT THIS TIME. PT STATES NO FURTHER NEEDS AT THIS TIME, CALL LIGHT WITHIN REACH. PT TRANSFERS TO CHAIR FOR LINEN CHANGE, TRANSFERS BACK TO BED X1 PERSON ASSIST. BED RAILS UP.
--- NOTE | 2023-03-14 08:15 | NUR ---
PT'S BROTHER, CLARISSA, ARRIVES TO BEDSIDE, HAS QUESTIONS REGARDING PLAN OF CARE. PT GIVES PERMISSION TO DISCUSS PLAN OF CARE WHILE CLARISSA IS IN ROOM. PT AND BROTHER STATE ALL QUESTIONS HAVE BEEN ANSWERED. PT STATES NO FURTHER NEEDS AT THIS TIME, CALL LIGHT WITHIN REACH, BED RAILS UP.
--- NOTE | 2023-03-14 08:34 | NUR ---
PRE PROCEEDURE CHECK LIST COMPLETE. LINENS CHANGED, CHG WIPE DOWN COMPLETE. PTS FAMILY, CLARISSA (BROTHER) UPDATED ON PLAN OF CARE AND ANTICIPATED PROCEEDURE. PT REPORTS MILD NAUSEA. SEE MAR FOR MEDICATION GIVEN. JAUNDICE NOTED THROUGHOUT SKIN AND IN SCLEAR OF EYES, ADDED TO ASSESSMENT. NO ADDITONAL REQUESTS OR COMPLAINTS. CALL LIGHT WITHIN REACH. BED RAILS UP.
--- NOTE | 2023-03-14 09:38 | NUR ---
HOURLY ROUNDING. DR. CHAMBERLAIN AT THE BEDSIDE DISCUSSING PLAN OF CARE WITH PT AND HIS BROTHERS. PT STATES NO FURTHER NEEDS AT THIS TIME, CALL LIGHT WITHIN REACH, BED RAILS UP.
--- NOTE | 2023-03-14 09:40 | NUR ---
DR. CHAMBERLAIN AND REGINE, PICC LINE RN TO BEDSIDE TO DISCUSS PLAN OF CARE AND PICC LINE PLACEMENT WITH PT AND FAMILY. ILLISTRATIONS USED, RISKS AND BENIFITS REVIEWED WITH PT AND FAMILY. PT AND FAMILY STATE ALL THEIR QUESTIONS HAVE BEEN ANSWERED. TPN ORDERS RECEIVED FROM DR CHAMBERLAIN. LAB ORDERS ENTERED RAFAELA DAI. ORDERS FAXED TO PHARMACY. PT UP TO STAND AND VOID USING URINAL. DARK CHECO TO BROWN COLORED URINE CONTINUES. IV FLUIDS CONTINUE. NO ADDITIONAL REQUSTS OR COMPLAINTS AT THIS TIME. PT CONTINUES TO DENY PAIN AND REPORTS NAUSEA HAS IMPROVED. OCCATIONAL HICCUPS/BURPS CONTINUE. CALL LIGHT WITHIN REACH. FAMILY AT BEDSIDE. BED RAILS UP.
--- NOTE | 2023-03-14 10:14 | NUR ---
This RN spoke to Sweta at [facility] transfer center, no med surg beds available at this time.
--- NOTE | 2023-03-14 11:05 | NUR ---
[place] 72 HOUR HOT LINE NOTIFICATION CALLED FOR PT. SPOKE WITH ADOLFO WHO PROVIDES AUTHORIZATION NUMBER FOR PTS CASE ([id number]) AND STATES PTS CASE HAS BEEN SUBMITTED. NUMBER PROIVIDED FOR [facility] AUTORIZATION, NUMBER LEADS TO THE [employer]. HEATHER, AT [facility] CALLED AGAIN AND STATES [facility] DOES NOT HAVE BED AVALIABLILITY AND MAY NOT FOR AN INDEFINAT PERIOD OF TIME. HEATHER STATES TO PERSUE TRANSFER OF PT TO A [facility] USING CASE AUTORIZATION NUMBER MENTIONED ABOVE. BRASS FINISHER AND MD UPDATED.
--- NOTE | 2023-03-14 11:35 | NUR ---
THIS RN TO BEDSIDE WITH PICC LINE NURSE JOSE Núñez RN. PT A+O, DENIES PAIN OR NAUSEA AT THIS TIME. PICC LINE BEING PLACED.
--- NOTE | 2023-03-14 11:37 | NUR ---
THIS RN TO BEDSIDE WITH PICC LINE NURSE JOSE Núñez RN. PICC LINE IN, AWAITING CHEST X-RAY RESULTS. PT DENIES PAIN OR NAUSEA, A+O TO ALL. PT STATES NO FURTHER NEEDS AT THIS TIME.
[2023-03-14 11:59] LABS: INR 1.48 (0.80-1.30); PROTIME 17.4 Sec (11.2-14.2)
[2023-03-14 12:01] LABS: PARTIAL THROMBOPLASTIN TIME 25.1 Sec (22.9-41.3)
[2023-03-14 12:04] LABS: ALBUMIN 1.5 g/dL (3.4-5.0); ALBUMIN/GLOBULIN RATIO 0.47 (1.1-2.4); BILIRUBIN, TOTAL 2.5 ng/dL (0.2-1.0); CALCIUM 7.7 mg/dL (8.5-10.1); CHOLESTEROL/HDL RATIO 6.2; CREATININE, SERUM 0.9 mg/dL (0.70-1.30); PROTEIN, TOTAL 4.7 g/dL (6.4-8.2)
--- NOTE | 2023-03-14 12:13 | NUR ---
PICC LINE NEAR COMPLETION, AWAITING VARIFICATION. PTS BROTHERS CLARISSA AND COLLEEN RETURNED TO BEDSIDE, UP DATED ON PTS STATUS AND PLAN OF CARE. PT AD FAMILY STATE THEY WOULD LIKE TO SPEAK WITH DR ABOUT PLAN OF CARE AND PLAN FOR TRANSFER. DR. MONACO UPDATED AND STATES HE WILL BE IN TO SPEAK WITH FAMILY. PT DENIES PAIN AND NAUSEA AT THIS TIME. RESTING IN SEMIFOWLER POSITION, CALL LIGHT WITHIN REACH. BED RAILS UP. PT ENCORUAGED TO CALL WITH ANY NEEDS.
--- NOTE | 2023-03-14 12:20 | NUR ---
0951- WAS ASKED TO PLACE A PICC LINE THE PT IS NEEDING TPN AND MULTIPLE OTHER MEDICATIONS. 0956- CONSENT OBTAINED FROM PT AND PT'S BROTHERS ABOUT RECEIVING A PICC LINE AFTER DISCUSSING RISKS AND BENEFITS. 1130- A DOUBLE LUMEN 4 FR PICC LINE WAS PLACED INTO THE PT'S RIGHT BASILIC VEIN AFTER 2 FAILED ATTEMPTS INTO THE BASILIC VEIN AND 1 UNSUCCESSFUL ATTEMPT INTO THE BRACHIAL VEIN. ONCE THE VEIN WAS ACCESSED THE GUIDEWIRE, INTRODUCER, AND PICC LINE EASILY ADVANCED UP THE VEIN. RED, NONPUSITILE BLOOD RETURNED. PT REPORTS NO PAIN WITH THE ADVANCEMENT OF THE PICC LINE. PICC LINE ADVANCED UNTIL P WAVES WERE PEAKED ON THE SITE RITE 8. P WAVES DID NOT INVERT. NO ECTOPY NOTED. PT'S BASILIC VEIN WAS MEASURED AND THE 4 FR PICC SHOULD TAKE UP APPROXIMATELY 35% OF THE VEIN ACCORDING TO THE SITE RITE 8. PICTURE IN CHART. 1158- ACCORDING TO RADIOLOGIST THE PICC LINE IS IN THE ATRIUM AND IS BEING RECOMMENDED TO PULL PICC LINE BACK 2.5 CM. 1206- PICC LINE PULLED BACK 2.5 CM AND REDRESSED IN A STERILE FASHION. PT REPORTS NO PAIN WITH THIS. IMAGING CALLED FOR REPEAT CHEST XRAY FOR PICC LINE BEING REPOSITIONED.
[2023-03-14 12:37] VITALS: BP 131/65
--- NOTE | 2023-03-14 12:39 | NUR ---
HOURLY ROUNDING. PT VISITING WITH BROTHERS, STATES NO PAIN OR NAUSEA. PT STATES NO FURTHER NEEDS AT THIS TIME, STATES [facility]" WHEN ASKED HOW HE FEELS ABOUT GOING TO A DIFFERENT HOSPITAL OTHER THAN THE [facility]. CALL LIGHT WITHIN REACH, BED RAILS UP, BROTHERS AT THE BEDSIDE.
--- NOTE | 2023-03-14 13:42 | NUR ---
AFTERNOON ASSESSMENT. PT DENIES PAIN AT THIS TIME. PT STATES HE IS "FEELING A LITTLE NAUSOUS", REQUESTS NAUSEA MEDICATION, GIVEN (SEE EMAR). L HAND IV PATENT, FLUSHED. PICC LINE IN PLACE, AWAITING CHEST X-RAY PLACEMENT CONFIRMATION PRIOR TO USE PER PROTOCOL, SITE WNL, NO SWELLING/REDNESS/PAIN. DRESSING C/D/I. PATIENT CONTINUES TO BE DROWSY, A+O TO PERSON, PLACE, AND TIME THIS AFTERNOON. PT CONTINUES TO HAVE WEAKNESS IN ALL EXTEMETIES, NO NUMBNESS OR TINGLING PER PT. LUNG SOUNDS REMAIN CLEAR. PULSES ARE FAINT IN ALL EXTREMETIES, EDEMA IN ALL EXTREMETIES WELL. EDEMA IN FEET HAS INCREASED TO +1 PITTING. NAIL BEDS ARE PALE THIS AFTERNOON. PT CONTINUES TO REFUSE SCDs AT THIS TIME. BOWEL TONES HYPOACTIVE, MILD ABDOMINAL DISTENTION UNCHANGED. PT CONTINUES TO BE NPO PER ORDER. PT HAS NOT YET VOIDED THIS AFTERNOON, URINE THIS MORNING WAS DARK CHECO COLOR. PT SKIN CONTINUES TO BE PALE AND MILDLY JAUNDICE, SCLERA OF EYES JAUNDICE. PT CONTINUES TO ASK QUESTIONS ABOUT PLAN OF CARE ALONG WITH BROTHERS IN ROOM, PT STATES ALL QUESTIONS HAVE BEEN ANSWERED AT THIS TIME. PT STATES NO FURTHER NEEDS AT THIS TIME, CALL LIGHT WITHIN REACH, BED RAILS UP.
--- NOTE | 2023-03-14 13:44 | NUR ---
PT'S PICC LINE PULLED BACK TO 5 CM EXPOSED THE RADIOLOGIST STATES THE PICC LINE PLACEMENT APPEARS UNCHANGED FROM THE PREVIOUS CHEST XRAY. REPEAT CHEST XRAY COMPLETED. PT AND PT'S BROTHER UPDATED ON THE PICC LINE AND WHEN IT CAN BE USED. BOTH STATE UNDERSTANDING.
--- NOTE | 2023-03-14 14:08 | NUR ---
PICC LINE APPROVED FOR USE BY PICC LINE NURSE. PURPLE LUMEN SALINE LOCKED, RED LUMEN IS INFUSING IVF. BRISK BLOOD RETURN NOTED FROM BOTH LUMENS. L HAND IV SALINE LOCKED WITH GREEN CAP. PT STATES NO FURTHER NEEDS AT THIS TIME, CALL LIGHT WITHIN REACH, BED RAILS UP, FAMILY UPDATED ON PLAN OF CARE, STATE ALL QUESTIONS HAVE BEEN ANSWERED AT THIS TIME.
[2023-03-14 14:58] VITALS: BP 116/74
--- NOTE | 2023-03-14 15:01 | NUR ---
THIS RN TO ROOM TO CHECK ON PT. PT RESTING IN BED WITH EYES CLOSED, RESPIRATIONS EVEN AND UNLABORED, HEAD OF BED ELEVATED TO 30 DEGREES. PT AWAKENS TO VOICE. VITAL SIGNS STABLE. PT DENIES NEED TO USE RESTROOM. PT DENIES PAIN AND NAUSEA STATING HE JUST WANTS "TO REST." NO ADDITIONAL REQUESTS OR COMPLAINTS. CALL LIGHT WITHIN REACH. BED RAILS UP.
--- NOTE | 2023-03-14 15:45 | NUR ---
PICC LINE ASSESSED, BRISK BLOOD RETURN PRESENT. TPN STARTED PER ORDER THROUGH PURPLE PICC LINE LUMEN, IVF INTO RED LUMEN. MD CONSULTED REGARDING CURRENT IV FLUID ORDERS, NEW ORDERS GIVEN, ORDERS ENTERED, REPEAT BACK PERFORMED. PT RESTING WITH EYES CLOSED, BREATHING EVEN AND UNLABORED, CALL LIGHT WITHIN REACH, BED RAILS UP.
--- NOTE | 2023-03-14 17:50 | NUR ---
HOURLY ROUNDING. PT RESTING IN BED WITH EYES CLOSED, RR 16 BREATHING EVEN AND UNLABORED. CALL LIGHT WITHIN REACH, BED RAILS UP.
--- NOTE | 2023-03-14 17:56 | NUR ---
PT HERE FOR DICKSON, DEHYDRATION. PT AMBULATING TO RESTROOM AND BED WITH SBA AND LINE AND TUBE MANAGEMENT. PT NPO, PICC LINE PLACED THIS SHIFT AND TPN AND IVF STARTED IN PICC LINE. LAST BM WAS LAST NIGHT. PT A+O TO ALL BUT THE DATE TODAY. PT IS DROWSY ALL OF TODAY AND REFUSES TO AMBULATE TO CHAIR. EDEMA PRESENT IN ALL EXTREMETIES, WORSENING IN BILAT. FEET. LUNG SOUNDS CLEAR THROUGHOUT SHIFT, PT COUGHING UP CLEAR THICK PHLEGM REPOSITIONED AND EDUCATION PROVIDED ON DEEP BREATHING AND SITTING UP IN BED. PT DENIES PAIN ALL SHIFT, COMPLAINS OF NAUSEA ONCE THIS SHIFT, NAUSEA MEDICATION GIVEN (SEE EMAR). PT AGREED TO LOOK FOR PLACEMENT AT FACILITY OTHER THAN [facility], AND WRECKING MECHANIC AWARE. FAMILY VISITED PT TODAY. PT USES CALL LIGHT APPROPRIATELY THROUGHOUT SHIFT.
--- NOTE | 2023-03-14 18:30 | NUR ---
HOURLY ROUNDING. PT RESTING WITH EYES CLOSED, RR 16 EVEN AND UNLABORED. CALL LIGHT WITHIN REACH, BED RAILS UP.
[2023-03-14 18:51] VITALS: BP 120/61
--- NOTE | 2023-03-14 19:00 | NUR ---
SHIFT REPORT RECEIVED FROM RONI RN AND YOEL RUSSO, PT RESTING QUIETLY, AWAKE AND VISITING WITH BROTHER, WITHOUT REQUESTS AT THIS TIME, TPN INFUSING WELL.
[2023-03-14 20:35] VITALS: BP 126/66
--- NOTE | 2023-03-14 20:35 | NUR ---
RN CALLED TO ROOM, PT STATES HE NEEDS TO VOID, STAND BY ASSIST GIVEN, PT VOIDED PER URINAL DARK CHECO-BROWN URINE, PT BACK TO BED, VS DONE, VS STABLE AND PT AFEBRILE, ASSESSMENT COMPLETED, ACCUCHECK 126, PICC LINE DRESSING INTACT, TPN INFUSING AT 83.8ML PER ON LUMEN AND POTASSIUM INFUSING AT 131ML/HR, PT BACK TO BED, WITHOUT C/O OF PAIN, PT RESTING.
--- NOTE | 2023-03-14 22:10 | NUR ---
PT APPEARS TO SLEEP, RESP EVEN AND REG, WITHOUT DISTRESS.
--- NOTE | 2023-03-14 23:45 | NUR ---
PT APPEARS TO SLEEP, RESP EVEN AND REG, WITHOUT DISTRESS. TPR AND POTASSIUM CONTINES TO INFUSE WELL.
--- NOTE | 2023-03-15 00:56 | NUR ---
PT ASLEEP, RESP EVEN AND REG, POTASSIUM COMPLETE, LR INFUSING AT 42ML/HR, PICC LINE INTACT, TPN CONTINUES AT 83.8ML/HR.
--- NOTE | 2023-03-15 02:00 | NUR ---
RN CALLED TO ROOM BY PATIENT, REQUESTING TO STAND TO VOID, VOIDED 225ML DARK CHECO URINE, INCONTINENT OF LIGHT GREENISH LIQUID STOOL, ASSISTANCE WITH CLEASING WIPES, NEW ATTENDS PLACED ON PT, PT BACK TO BED, REQUESTING L[place]ON [place], GIVEN AND FEW SIPS TAKEN, PT RESTING, HOB ELEVATED APPROX 25-30 DEGREES.
--- NOTE | 2023-03-15 03:05 | NUR ---
PT RESTING QUIETLY, RESP REG.
[2023-03-15 05:35] VITALS: BP 117/65
--- NOTE | 2023-03-15 05:35 | NUR ---
PT RESTING QUIETLY, AM LABS DRAWN FROM RED PORT OF PICC LINE AFTER TPN AND LR HAD BEEN OFF FOR 20 MINUTES, 10ML WASTED PRIOR TO BLOOD DRAW, ACCUCHECK FROM DRAWN BLOOD WAS 100, VS AND I/O DONE, VS STABLE, AFEBRILE, PICC SITE INTACT AND TPR/ LR RESTARTED AND INFUSING WELL, PT TAKING SIPS OF SODA THEN BACK TO SLEEP, RESP EVEN AND REG.
[2023-03-15 06:00] LABS: ANION GAP 8.3 (7-21); BUN/CREATININE RATIO 28.2 (6.0-28.6); CALCIUM 7.6 mg/dL (8.5-10.1); CREATININE, SERUM 0.78 mg/dL (0.70-1.30); PHOSPHORUS, INORGANIC 2.3 mg/dL (2.5-4.9); POTASSIUM 3.3 mmol/L (3.5-5.1)
--- NOTE | 2023-03-15 07:21 | NUR ---
REPORT RECEIVED FROM RAFAELA WEINER. PT RESTING WITH EYES CLOSED, RESPRIATIONS EVEN AND UNLABORED, HEAD OF BED AT 30 DEGREES. PICC LINE WNL. PT ALLOWED TO REST. REGINE REPORTS PT REQUESTED A SHOWER LAST NIGHT BUT HAS NOT YET RECEIVED ONE, ACTING GUIDE SETTER (RAFAELA DORADO) UPDATED AND WILL ASSIST PT WITH SHOWER. NO ADDITIONAL NEEDS AT THIS TIME. THIS RN ASSUMING CARE OF PT WITH RAFAELA TAMAYO.
--- NOTE | 2023-03-15 07:22 | NUR ---
RECIEVED REPORT FROM RAFAELA WEINER. PT RESTING WITH EYES CLOSED, BREATHING EVEN AND UNLABORED. CALL LIGHT WTIHIN REACH, BED RAILS UP. ASSUMING CARE OF PT WITH RAFAELA DIALLO.
--- NOTE | 2023-03-15 07:40 | NUR ---
RESPOND TO PT CALL LIGHT TO USE THE BATHROOM. 1PA WITH LINE AND TUBE MANAGEMENT WHILE PT AMBULATED TO BATHROOM. PT ABLE TO STAND AND VOID INTO URINAL. PT ALSO HAD A MEDIUM SIZED, LIQUID BM THAT WAS GREEN AND MUCOUS-Y IN COLOR AND APPEARANCE. NOTED THAT THE SKIN ON EACH SIDE OF THE GLUTEAL CLEFT WAS REDDENED AND PT AGREED TO ALLOW ME TO APPLY BARRIER CREAM TO THE REDDENED AREAS. PRIMARY RN NOTIFIED. PT AMBULATED BACK TO BED, CALL LIGHT IN REACH, WARM BLANKET PROVIDED. IV PUMPS PLUGGED IN. BEDSIDE TABLE AND PERSONAL BELONGINGS IN REACH.
[2023-03-15 10:11] LABS: PREALBUMIN 3.8 mg/dL (20.0-40.0)
[2023-03-15 10:15] VITALS: BP 125/75
--- NOTE | 2023-03-15 10:23 | NUR ---
MORNING ASSESSMENT AND MEDICATIONS DUE, GIVEN (SEE EMAR). PT DENIES PAIN, STATES HE "MIGHT NEED SOME NAUSEA MEDICATION", GIVEN (SEE EMAR). L HAND IV FLUSHED AND ASSESSED, WNL. PICC LINE ASSESSED, BRISK BLOOD RETURN IN ALL LUMENS, FLUSHED EACH LUMEN WITH 10ML NS PER PROTOCOL, BOTH LUMENS CURRENTLY IN USE. PICC LINE DRESSING C/D/I, DISINFECTANT CAPS APPLIED. PT CONTINUES TO BE DROWSY TODAY, INCREASING WEAKNESS PRESENT WHEN PT GETS OUT OF BED AND INTO WHEELCHAIR TO GO FOR WALK WITH HIS BROTHER, CLARISSA. EDEMA IN BLE INCREASED COMPARED TO PREVIOUS. DEPENDENT EDEMA PRESENT ON LOWER BACK WHILE PT IN BED. SENSATION PRESENT IN ALL EXTREMETIES PER PT. ABDOMEN DISTENTION INCREASED TODAY COMPARED TO PREVIOUS, BOWEL TONES CONTINUE TO BE HYPERACTIVE. PT CONTINUES TO BE ON CLEAR LIQUID DIET, PT CONSUMING MINIMAL AMOUNTS OF PO FLUIDS, STATES HE "MIGHT WANT TO TRY SOME ORANGE JUICE LATER TODAY". URINE CONTINUES TO BE DARK CHECO IN COLOR. PT STATES HE IS "LOOKING FORWARD TO TAKING A SHOWER AND BRUSHING MY TEETH" TODAY. REDDENED AREA PRESENT ON BUTTOCKS, REPOSITIONING AND ACTIVITY TOLERATED ENCOURAGED, PT UP TO WHEELCHAIR FOR WALK WITH BROTHER, UP TO SHOWER AND BRUSH TEETH WITH RAFAELA COFFEY. PT STATES NO FURTHER NEEDS AT THIS TIME. CALL LIGHT WITHIN REACH, AND RAFAELA COFFEY AT THE BEDSIDE.
--- NOTE | 2023-03-15 11:00 | NUR ---
IN WITH PT TO ASSIST WITH SHOWER. PT FIRST SAT AT SINK TO BRUSH TEETH AND RINSE. ASSISTED PT TO STAND AND SHUFFLE TO SHOWER CHAIR AND ADJUSTED WATER TO THE TEMPERATURE OF HIS LIKING. PROVIDED SUPPLIES AND STEPPED OUT OF THE BATHROOM BUT STAYED NEARBY, LETTING PT KNOW TO CALL OUT WHEN HE IS FINISHED. I PEEKED IN A COUPLE OF TIMES TO MONITOR AND PT WAS PERFORMING HIS SHOWER UNASSISTED WITHOUT ISSUES. WHEN COMPLETE, ASSISTED PT BY DRYING HIS BACK, HAIR, LEGS AND FEET, APPLIED CLEAN DRY NO-SLIP SOCKS AFTER DRYING THE FLOOR AND DRYING HIS FEET, APPLIED CLEAN BRIEF AND GOWN AND 1PA PT TO AMBULATE BACK TO BED. PT STATED HE WAS TIRED FROM SHOWERING BUT THAT IT FELT REALLY GOOD. APPLIED WARM BLANKETS, CALL LIGHT, BEDSIDE TABLE, AND PERSONAL BELONGINGS IN REACH. FLUIDS AND TPN RECONNECTED AFTER FLUSHING BOTH LINES WITH 5ML NS AND OBTAINING GOOD BLOOD RETURN FROM BOTH (CAPS HAD BEEN APPLIED AND LINES FLUSHED AND COVERED PRIOR TO THE PT SHOWERING, ON THE PICC LINES WELL THE IV IN PT'S LEFT HAND). ADVISED PRIMARY RNS THAT PT TOLERATED ACTIVITY WELL.
--- NOTE | 2023-03-15 11:30 | NUR ---
PT FINISHED WITH SHOWER. BACK TO BED, INFUSIONS RESTARTED BY RAFAELA DORADO. PT REQUESTS ORANGE JUICE, PROVIDED, PT THEN REQUESTS EMESIS BAGS HE IS SPITTING UP WHATEVER HE ATTEMPTS TO SWALLOW, ALSO PROVIDED. PT DENIES NAUSEA AT THIS TIME. DR MONACO TO BEDSIDE TO REVIEW PLAN OF CARE WITH PT AND PTS BROTHER, CLARISSA. PT AND BROTHER STATE THEY ARE WILLING TO TRANSFER TO ANY HOSPITAL THAT WILL ACCEPT LISBETH'S CASE. CALLS BEING MADE BY YESSENIA GILL RN. PT DENIES ADDITIONAL REQUESTS OR COMPLAINTS AT THIS TIME. RESTING IN BED, DECLINES TIME UP TO CHAIR. HEAD OF BED ELEVATED TO 15 DEGREES. CALL LIGHT WITHIN REACH. BED RAILS UP.
--- NOTE | 2023-03-15 11:39 | NUR ---
HOURLY ROUNDING. PT IS BACK IN BED AFTER SHOWER AND ORAL CARE, PT STATES THAT HIS SHOWER "FELT GOOD", PT APPEARS MORE ALERT THAN DURING MORNING ASSESSMENT. R ARM CIRCUMFERENCE MEASURED 10CM ABOVE AC PER PROTOCOL, 28CM. PT STATES NO FURTHER NEEDS AT THIS TIME, CALL LIGHT WITHIN REACH, BED RAILS UP.
--- NOTE | 2023-03-15 12:02 | NUR ---
IN WITH PT FOR CBG, 126. PT AWAKE, WATCHING TELEVISION. IV FLUIDS RUNNING. CALL LIGHT IN REACH. DENIES NEEDS AT THIS TIME.
--- NOTE | 2023-03-15 12:31 | NUR ---
HOURLY ROUNDING. PT RESTING IN BED WITH EYES CLOSED, RR 16 EVEN AND UNLABORED. CALL LIGHT WITHIN REACH, BED RAILS UP.
--- NOTE | 2023-03-15 13:40 | NUR ---
THIS RN TO ROOM TO UPDATE PT ON PLAN FOR TRANSFER. PT VERBALIZES UNDERSTANDING AND STATES HIS QUESTIONS HAVE BEEN ANSWERED. PT REQUESTS ASSISTANCE UP TO BEDSIDE COMODE. 1 PERSON ASSIST UP TO COMODE. PT INCONTINANT OF URINE. AB CARE DONE, DEPENDS CHANGED. PT PASSESS LARGE AMOUNTS OF FRANCISCO, NO STOOL AT THIS TIME. PT VOIDS 150ML CHECO COLORED URINE. PT ENCOURAGED TO GET UP TO CHAIR. PT AGREES, 1 PERSON ASSIST UP TO CHAIR. BLANKETS PROVIDED. PT CONTINEUS TO COUGH UP SPUTUM. PTS BROTHER, CLARISSA, CALLED AND UPDATED REGARDING PT PLAN OF CARE AND PLAN FOR TRANSFER. CLARISSA STATES HE IS ON HIS WAY TO SEE PT OFF. PT DENIES ADDITIONAL REQUSTS OR COMPLAINTS. CALL LIGHT WITHIN REACH.
--- NOTE | 2023-03-15 14:34 | NUR ---
REPORT GIVEN TO RAFAELA SRIVASTAVA WHO STATES HER QUESTIONS HAVE BEEN ANSWERED. BED NUBMER RECEIVED AND WRITTEN ON TRANSFER SHEET (BED 1566, LEVEL 15). BED NUMBER AND CONTACT PHONE NUMBER GIVEN TO PT AND PTS BROTHER CLARISSA.
[2023-03-15 14:36] VITALS: BP 119/67
--- NOTE | 2023-03-15 15:03 | NUR ---
EMS TRANSPORT ARRIVED, REPORT GIVEN TO BARB AND ALEJANDRA. PT TRANSFERS FROM CHAIR TO STRETCHER WITH SBA. TWO PLUM PUMPS WITH MEDICATIONS AND FLUIDS INFUSING WITH PT TO TRANSFER. ALL PERSONAL BELONGINGS WITH PATIENT AND PATIENT'S BROTHER, CLARISSA. PT STATES HE HAS SOME NAUSEA AT THIS TIME, REQUESTS NAUSEA MEDICATION FOR RIDE, GIVEN (SEE EMAR). PT WHEELED FROM [facility] BY EMS PERSONEL.
--- NOTE | 2023-03-15 15:03 | NUR ---
HOURLY ROUNDING, PT UP TO USE URINAL, NEW TPN BAG HUNG, BROTHER AND SISTER IN LAW AT THE BEDSIDE. PT DENIES PAIN/NAUSEA. PT STATES NO FURTHER NEEDS AT THIS TIME, CALL LIGHT WITHIN REACH, LEGS RAISED ON CHAIR.
--- NOTE | 2023-03-15 15:54 | NUR ---
[facility] NOTIFICATION [facility] CALLED PREVISOULY REQUESTED BY [facility] IF PT WAS [facility]. AUTHROIZATION CODE FOR THIS HOSPITAL STAY ([id number]) PROVIDED. NEW CASE STARTED WITH NEW AUTHORIZATION CODE PROVIDED ([id number]). BENDING PRESS OPERATOR UPDATED.
--- NOTE | 2023-03-17 17:48 | PATH ---
[facility] [address], [place] [address] Signed THIS IS AN ADDENDUM REPORT SPECIMEN(S): A PYLORIC BULB BIOPSY SPECIMEN(S): B ANTRUM BIOPSY SPECIMEN(S): C GE JUNCTION TUMOR BIOPSY SPECIMEN(S): D DISTAL ESOPHAGEAL BIOPSY SPECIMEN(S): E MID ESOPHAGEAL BIOPSY SPECIMEN SOURCE: A. PYLORIC BULB BIOPSY B. ANTRUM BIOPSY C. GE JUNCTION TUMOR BIOPSY D. DISTAL ESOPHAGEAL BIOPSY E. MID ESOPHAGEAL BIOPSY CLINICAL HISTORY: DICKSON, dehydration FINAL PATHOLOGIC DIAGNOSIS: A. Pyloric bulb, biopsy: - No significant histopathology. - Jose A's gland hyperplasia is present. B. Stomach, antrum, biopsy: - No significant histopathologic alterations. C. 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 - Focal acute esophagitis is identified. D. Distal esophagus, biopsy: - Chronic esophagitis. E. Mid esophagus, biopsy: - Acute and chronic esophagitis. COMMENT: A. The sections from the pyloric bulb biopsy show portions of duodenal mucosa with long fingerlike villi. There is no villous atrophy, crypt hyperplasia or intraepithelial lymphocytosis making a diagnosis of celiac disease unlikely. There is no evidence of peptic duodenitis, microorganisms, abnormal infiltrates or neoplasia. B. The sections through the gastric biopsies show fragments of histologically unremarkable antral mucosa. There is no evidence of acute or chronic inflammation. There is no evidence of H. pylori, PATIENT NAME: LISBETH EL PATHOLOGY DATE OF : 62 REPORT #: [id number] PHYSICIAN: CRYSTAL ISABEL PCP: HUSSEIN MILLS MD REPORT IS CONFIDENTIAL AND NOT TO BE RELEASED WITHOUT AUTHORIZATION [facility] [address] [place], [place] [address] Signed intestinal metaplasia, abnormal infiltrates or neoplasia. C. The sections through the biopsy show the presence of cardiac mucosa that contains specialized intestinal metaplasia, including goblet cells. If this biopsy derives from endoscopically abnormal mucosa in the tubular esophagus, then the findings meet the ACG diagnostic criteria of Arredondo's esophagus. Otherwise, this is considered to be intestinal metaplasia at the GE junction. There is no evidence of H. pylori. D. The biopsy contains reactive appearing squamous mucosa. Chronic inflammation is present. No glandular mucosa is present. The changes are nonspecific and can be seen in a variety of settings including infections, gastroesophageal reflux disease or other forms of esophagitis. E. The esophageal biopsy shows both acute and chronic inflammation in the squamous epithelium. There is accompanying basal cell hyperplasia which is confirmed by the Alcian blue/Pas stain. No viral or fungal organisms are seen. K MICROSCOPIC EXAMINATION: Histologic sections of all submitted blocks are examined by light microscopy. These findings, together with the gross examination, support the pathologic diagnosis. GROSS DESCRIPTION: A. The specimen, labeled and designated "Cawvey, pyloric bulb biopsy," is received in formalin and consists of one bradley soft tissue fragment, 0.3 cm. Entirely submitted in (A1). B. The specimen, labeled and designated "Cawvey, antrum biopsy," is received in formalin and consists of one bradley soft tissue fragment, 0.4 cm. Entirely submitted in (B1). C. The specimen, labeled and designated "Cawvey, GE junction tumor biopsy," is received in formalin and consists of three bradley soft tissue fragments, ranging from 0.2-0.6 cm. Entirely submitted in (C1). D. The specimen, labeled and designated "Kathywjessa, distal esophageal biopsy," is received in formalin and consists of one bradley soft tissue fragment, 0.6 cm. Entirely submitted in (D1). E. The specimen, labeled and designated "Adali, mid esophageal biopsy," is received in formalin and consists of one bradley soft tissue fragment, 0.6 cm. Entirely submitted in (E1). PATIENT NAME: LISBETH EL PATHOLOGY DATE OF : 62 REPORT #: [id number] PHYSICIAN: CRYSTAL PATHOLOGY PCP: HUSSEIN MILLS MD REPORT IS CONFIDENTIAL AND NOT TO BE RELEASED WITHOUT AUTHORIZATION [facility] [address] [place] [id number] Signed VB (under the direct supervision of a pathologist) The Gross Description was prepared using a voice recognition system. The report was reviewed for accuracy; however, sound-alike word errors, addition and/or deletions may occur. If there is any question about this report, please contact Client Services. ADDITIONAL NOTES: Immunohistochemical and/or in situ hybridization studies if performed in this case included appropriate positive controls that reacted as expected. This test was developed and its performance characteristics determined by [employer]. It has not been cleared or approved by the U.S. Food and Drug Administration. The FDA has determined that such clearance or approval is not necessary. This test is used for clinical purposes. It should not be regarded as investigational or for research. [employer] is certified under the Clinical Laboratory Improvement Amendments of 1988 (CLIA) as qualified to perform high complexity clinical laboratory testing. PERFORMING LABORATORY: Technical component was performed by [facility], [address] [place] [id number] (CLIA# [id number]). Professional interpretation [facility], [address] [place] [address] (CLIA#:[id number]). REASON FOR ADDENDUM: To add results of additional testing. ADDENDUM PATHOLOGIC DIAGNOSIS: C. GE junction, tumor, biopsy: - D/PAS stain is negative for fungal microorganisms. - There is no change in the above diagnosis. - Control slides stained appropriately positive. E. Mid esophagus, biopsy: - D/PAS stain is negative for fungal microorganisms. - There is no change in the above diagnosis. - Control slides stained appropriately positive. TWK:cml The professional interpretation was performed by [facility], [facility], [address] [place] [address] (CLIA#: [id number]). PATIENT NAME: LISBETH EL PATHOLOGY DATE OF : 62 REPORT #: [id number] PHYSICIAN: CRYSTAL ISABEL PCP: HUSSEIN MILLS MD REPORT IS CONFIDENTIAL AND NOT TO BE RELEASED WITHOUT AUTHORIZATION [facility] [address] [place] [id number] Signed Diagnostician: Marino Morillo MD Pathologist Electronically Signed 03/17/2023 Copies: ~ PATIENT NAME: LISBETH EL PATHOLOGY DATE OF : 62 REPORT #: [id number] PHYSICIAN: CRYSTAL PATHOLOGY PCP: HUSSEIN MILLS MD REPORT IS CONFIDENTIAL AND NOT TO BE RELEASED WITHOUT AUTHORIZATION
== END 2023-03-15 15:40 | disposition short-term general hospital (02) | DRG 682 ==
LOC: ED 14:54 → MS 18:12
PROVIDERS: Colon & Rectal Surgery; Emergency Medicine; Family Medicine; Internal Medicine; ADMIT Family Medicine; ATTEND Family Medicine
PROC: 0DB78ZX Excision of Stomach, Pylorus, Via Natural or Artificial Opening Endoscopic, Diagnostic (ICD-10-PCS; 2023-03-08)
PROC: 0DB28ZX Excision of Middle Esophagus, Via Natural or Artificial Opening Endoscopic, Diagnostic (ICD-10-PCS; 2023-03-08)
PROC: 02HV33Z Insertion of Infusion Device into Superior Vena Cava, Percutaneous Approach (ICD-10-PCS; 2023-03-08)
PROC: 3E0436Z Introduction of Nutritional Substance into Central Vein, Percutaneous Approach (ICD-10-PCS; 2023-03-08)
PROC: 0DB48ZX Excision of Esophagogastric Junction, Via Natural or Artificial Opening Endoscopic, Diagnostic (ICD-10-PCS; 2023-03-08)
PROC: 0DB38ZX Excision of Lower Esophagus, Via Natural or Artificial Opening Endoscopic, Diagnostic (ICD-10-PCS; principal; 2023-03-08 09:30)
DX: N17.9 Acute kidney failure, unspecified (principal); E43 Unspecified severe protein-calorie malnutrition; C15.5 Malignant neoplasm of lower third of esophagus; E87.0 Hyperosmolality and hypernatremia; C78.7 Secondary malignant neoplasm of liver and intrahepatic bile duct; E87.1 Hypo-osmolality and hyponatremia; I10 Essential (primary) hypertension; E86.0 Dehydration; E87.8 Other disorders of electrolyte and fluid balance, not elsewhere classified; R13.10 Dysphagia, unspecified; D64.9 Anemia, unspecified; E80.6 Other disorders of bilirubin metabolism; Z87.19 Personal history of other diseases of the digestive system; Z98.890 Other specified postprocedural states; Z11.52 Encounter for screening for COVID-19
CPT/HCPCS: 00731; 36415; 36569; 71045; 80048; 80053; 80061; 81003; 82378; 83735; 84100; 84134; 85025; 85060; 85610; 85730; 87077; 87502; 88305; 88312; 93005; 93010; C1751; C9113; C9803; J0780; J2001; J2405; J2704; J3475; J3480; J3490; J7030; J7060; J7070; J7121; U0002